=== PATIENT | male | born 1960 | race African-American/Black ===

== ENCOUNTER 2017-02-06 09:16 | Emergency (ER) | payer MEDICAID ==
[~2017-02-06] VITALS: Ht 188 cm; Wt 100.0 kg
[~2017-02-06 09:16] MED LIST: ALBU17I INH; CLEO300C2 PO; HYDR-3535 PO; MORP20SO PO
[2017-02-06 09:18] VITALS: BP 123/103; PULSE 98; RESP 24; TEMP 97.9; O2SAT 97
[2017-02-06] MEDS ORDERED: SODIUM CHLOR 0.9% 1000 ML INJ 1,000 ML IV SCH (09:27)
[2017-02-06] MEDS ORDERED: MUSCLE RELAXER PO (09:30)
[2017-02-06] MEDS ORDERED: HYDR-3535 PO (09:30)
[2017-02-06] MEDS ORDERED: ONDANSETRON HCL 4 MG/2 ML VIAL IVP ONE (09:30)
--- NOTE | 2017-02-06 09:36 | PD ---
HPI Chief Complaint: GI Complaint Time Seen by Provider: 09:22 Travel History International Travel<30 days: No Contact w/Intl Traveler<30days: No Traveled to known affect area: No History of Present Illness HPI 56-year-old male complains of nausea vomiting diarrhea. Patient has headache, body ache, chest wall pain, abdominal cramping, body ache. Patient states the symptoms started 2 days ago. Patient has sick contacts recently. Patient states that the headaches mild aching headache. Patient denies any visual change. Patient denies any neck pain. Patient states that he has mild dry cough. Patient complains of chest wall pain. Patient states that he has intermittent abdominal cramping. Patient denies any blood or mucus in the vomitus or the stool. Patient denies dysuria or frequency. Patient states he has fever and chills. PFSH Past Medical History Asthma: Yes Cardiovascular Problems: No COPD: Yes (EMPHYSEMA) Cerebrovascular Accident: No Diabetes: No Diminished Hearing: No Endocrine: No Genitourinary: No Musculoskeletal: No Neurologic: Yes Psychiatric: No Reproductive: No Respiratory: Yes (EMPHYSEMA) Migraines: Yes Seizures: No Sleep Apnea: No Tetanus Vaccination: > 5 Years Influenza Vaccination: No Past Surgical History Abdominal Surgery: No AICD: No Arteriovenous Shunt: No Cardiac Surgery: No Ear Surgery: No Endocrine Surgery: No Eye Surgery: No Genitourinary Surgery: No Gynecologic Surgery: No Insulin Pump: No Joint Replacement: No Oral Surgery: No Pacemaker: No Thoracic Surgery: Yes (COLLAPSE LUNG--CHEST TUBE) Other Surgery: Yes Social History Alcohol Use: Yes (RARELY) Tobacco Use: Yes (QUIT APRIL 2011) Substance Use: No Allergies-Medications (Allergen,Severity, Reaction): Coded Allergies: *MDRO Multi-Drug Resistant Organism (Verified Allergy, Unknown, 02/06/17) MRSA Reported Meds & Prescriptions Reported Meds & Active Scripts Active Reported [Muscle Relaxer] Unknown Dose PO Lortab (Hydrocodone-Acetaminophen) 10-325 Mg Tab 1 Tab PO Q6H PRN Review of Systems General / Constitutional: No: Fever Eyes: No: Visual changes HENT: Positive: Headaches Cardiovascular: No: Chest Pain or Discomfort Respiratory: Positive: Cough, No: Shortness of Breath Gastrointestinal: Positive: Nausea, Vomiting, Diarrhea, No: Abdominal Pain Genitourinary: No: Dysuria Musculoskeletal: No: Pain Skin: No Rash Neurologic: No: Weakness Psychiatric: No: Depression Endocrine: No: Polydipsia Hematologic/Lymphatic: No: Easy Bruising Physical Exam Narrative GENERAL: Well-nourished, well-developed patient. SKIN: Focused skin assessment warm/dry. HEAD: Normocephalic. EYES: No scleral icterus. No injection or drainage. NECK: Supple, trachea midline. No JVD or lymphadenopathy. CARDIOVASCULAR: Regular rate and rhythm without murmurs, gallops, or rubs. RESPIRATORY: Breath sounds equal bilaterally. No accessory muscle use. GASTROINTESTINAL: Abdomen soft, nondistended. Patient has mild tenderness diffusely over the abdomen. No rebound tenderness. No mass. MUSCULOSKELETAL: No cyanosis, or edema. BACK: Nontender without obvious deformity. No CVA tenderness. Neurologic exam normal. Data Data Last Documented VS Vital Signs Date Time Temp Pulse Resp B/P Pulse Ox O2 Delivery O2 Flow Rate FiO2 02/06/17 11:18 83 18 137/67 95 Room Air 02/06/17 09:18 97.9 Orders Complete Blood Count With Diff (02/06/17 09:27) Comprehensive Metabolic Panel (02/06/17 09:27) Lipase (02/06/17 09:27) Iv Access Insert/Monitor (02/06/17 09:27) Ecg Monitoring (02/06/17 09:27) Oximetry (02/06/17 09:27) Ondansetron Inj (Zofran Inj) (02/06/17 09:30) Sodium Chlor 0.9% 1000 Ml Inj (Ns 1000 M (02/06/17 09:27) Influenzae A/B Antigen (02/06/17 09:27) Chest, Single Ap (02/06/17 09:27) Ketorolac Inj (Toradol Inj) (02/06/17 09:45) Diphenoxylate/Atropine Tab (Lomotil Tab) (02/06/17 09:45) Labs Laboratory Tests Test 02/06/17 02/06/17 09:50 10:44 White Blood Count 4.9 TH/MM3 Red Blood Count 4.79 MIL/MM3 Hemoglobin 15.6 GM/DL Hematocrit 45.6 % Mean Corpuscular Volume 95.2 FL Mean Corpuscular Hemoglobin 32.5 PG Mean Corpuscular Hemoglobin 34.2 % Concent Red Cell Distribution Width 12.6 % Platelet Count 228 TH/MM3 Mean Platelet Volume 9.0 FL Neutrophils (%) (Auto) 84.7 % Lymphocytes (%) (Auto) 9.7 % Monocytes (%) (Auto) 4.8 % Eosinophils (%) (Auto) 0.6 % Basophils (%) (Auto) 0.2 % Neutrophils # (Auto) 4.2 TH/MM3 Lymphocytes # (Auto) 0.5 TH/MM3 Monocytes # (Auto) 0.2 TH/MM3 Eosinophils # (Auto) 0.0 TH/MM3 Basophils # (Auto) 0.0 TH/MM3 CBC Comment DIFF FINAL Differential Comment Sodium Level 141 MEQ/L Potassium Level 4.6 MEQ/L Chloride Level 110 MEQ/L Carbon Dioxide Level 22.7 MEQ/L Anion Gap 8 MEQ/L Blood Urea Nitrogen 14 MG/DL Creatinine 0.91 MG/DL Estimat Glomerular Filtration 105 ML/MIN Rate Random Glucose 93 MG/DL Calcium Level 8.0 MG/DL Total Bilirubin 0.6 MG/DL Aspartate Amino Transf 29 U/L (AST/SGOT) Alanine Aminotransferase 25 U/L (ALT/SGPT) Alkaline Phosphatase 33 U/L Total Protein 6.8 GM/DL Albumin 3.3 GM/DL Lipase 522 U/L MDM Medical Decision Making Medical Screen Exam Complete: Yes Emergency Medical Condition: Yes Interpretation(s) Last Impressions Chest X-Ray 02/06/17 0927 Signed Impressions: Service Date/Time: Monday, February 06, 2017 10:15 - CONCLUSION: No acute disease. Handy Woodall MD 10:55 AM. CBC within normal limit. Influenza AB antigen negative. 11:36 AM. CMP within normal limit. Lipase 522. Differential Diagnosis Differential diagnosis including viral syndrome, bronchitis, pneumonia, gastroenteritis, dehydration, electrolyte imbalance, gastritis, PUD, pancreatitis, cholecystitis, colitis, UTI, pyelonephritis. Narrative Course 56 years old male with headache, body ache, nausea vomiting diarrhea. Normal saline solution 1 L IV bolus. Zofran 4 mg IV. Diagnosis Primary Impression: Gastroenteritis Additional Impression: Viral syndrome Patient Instructions: General Instructions Additional Instructions: Clear fluids today and advance diet tomorrow. Take medication as needed. Follow-up with personal physician. Return if persistent problem or worse. Tylenol for aching pain. Med/Other Pt SpecificInfo: Prescription(s) given Scripts Dicyclomine (Bentyl)20 Mg Tab20 Mg PO TID #21 TAB Prov:Tommy Castaneda MD 02/06/17 Pantoprazole (Protonix)20 Mg Tab20 Mg PO DAILY #30 TAB Prov:Tommy Castaneda MD 02/06/17 Disposition: 01 DISCHARGE HOME Condition: Stable Tommy Castaneda MD Feb 06, 2017 09:36
[2017-02-06] MEDS ORDERED: DIPHENOXYLATE/ATROPINE 2.5 MG/0.025 MG TAB PO ONE (09:45)
[2017-02-06] MEDS ORDERED: KETOROLAC TROMETHAMINE 30 MG/ML (IVP) VIAL IV PUSH ONE (09:45)
[2017-02-06 10:12] LABS: AUTOMATED NEUTROPHIL # 4.2 TH/MM3 (1.8-7.7); BASOPHIL % 0.2 % (0.0-2.0); EOSINOPHIL % 0.6 % (0.0-4.0); HEMATOCRIT 45.6 % (39.0-51.0); HEMO FLAGS DIFF FINAL; LYMPH % 9.7 % (9.0-44.0); LYMPHOCYTE # 0.5 TH/MM3 (1.0-4.8); MEAN CELL VOLUME 95.2 FL (80.0-100.0); MEAN CORPUSCULAR HEMOGLOBIN 32.5 PG (27.0-34.0); MEAN CORPUSCULAR HGB CONC 34.2 % (32.0-36.0); MONO % 4.8 % (0.0-8.0); NEUT % 84.7 % (16.0-70.0); PLATELET COUNT 228 TH/MM3 (150-450); RED BLOOD COUNT 4.79 MIL/MM3 (4.50-5.90); RED CELL DISTRIBUTION WIDTH 12.6 % (11.6-17.2); WHITE BLOOD COUNT 4.9 TH/MM3 (4.0-11.0)
--- NOTE | 2017-02-06 10:29 | RADRPT ---
EXAM DATE/TIME: 02/06/2017 10:15 [facility] COMPARISON: CHEST SINGLE AP, March 30, 2013, 12:35. INDICATIONS : Cough. MEDICAL HISTORY : Chronic obstructive pulmonary disease. SURGICAL HISTORY : Lobectomy ENCOUNTER: Initial ACUITY: 1 month PAIN SCORE: 0/10 LOCATION: Bilateral chest FINDINGS: A single view of the chest demonstrates the lungs to be symmetrically aerated without evidence of mas s, infiltrate or effusion. The cardiomediastinal contours are unremarkable. Osseous structures are intact. CONCLUSION: No acute disease. Handy Woodall MD on February 06, 2017 at 10:25 Board Certified Radiologist. This report was verified electronically.
[2017-02-06 11:15] LABS: ANION GAP 8 MEQ/L (5-15); AST (GOT) 29 U/L (15-37); BICARBONATE 22.7 MEQ/L (21.0-32.0); BLOOD UREA NITROGEN 14 MG/DL (7-18); CHLORIDE 110 MEQ/L (98-107); GLOMERULAR FILTRATION RATE 105 ML/MIN (>89); SODIUM (NA) 141 MEQ/L (136-145)
[2017-02-06 11:18] VITALS: BP 137/67; PULSE 83; RESP 18; O2SAT 95
[2017-02-06 11:18] LABS: POTASSIUM 4.6 MEQ/L (3.5-5.1)
[2017-02-06 11:22] LABS: ALKALINE PHOSPHATASE 33 U/L (45-117); ALT (GPT) 25 U/L (12-78); TOTAL BILIRUBIN ADULT 0.6 MG/DL (0.2-1.0)
[2017-02-06] MEDS ORDERED: BENT20TA PO (11:40)
[2017-02-06] MEDS ORDERED: PANT20 PO (11:40)
== END 2017-02-06 12:15 | disposition home or self-care (01) ==
LOC: NEPD 09:16
DX: K52.9 Noninfective gastroenteritis and colitis, unspecified (principal); B34.9 Viral infection, unspecified
CPT/HCPCS: 71010; 80053; 83690; 85025; 87804; 96361; 96374; 96375; J1885; J2405; J7030

== ENCOUNTER 2017-02-07 17:55 | Inpatient (IN) | payer MEDICAID ==
[~2017-02-07] VITALS: Ht 182.9 cm; Wt 86.0 kg
[~2017-02-07 17:55] MED LIST changes: -ALBU17I INH; +BENT20TA PO; -CLEO300C2 PO; -MORP20SO PO; +MUSCLE RELAXER PO; +PANT20 PO
[2017-02-07 17:57] VITALS: BP 158/85; PULSE 138; RESP 28; TEMP 97.8; O2SAT 93
[2017-02-07] MEDS ORDERED: SODIUM CHLORIDE 0.9% FLUSH 10 ML FLUSH IVF PRN (18:15)
--- NOTE | 2017-02-07 18:20 | PD ---
HPI Chief Complaint: Respiratory Distress Time Seen by Provider: 18:19 Travel History International Travel<30 days: No Contact w/Intl Traveler<30days: No Traveled to known affect area: No History of Present Illness HPI Patient comes in complaining of left-sided chest pain that began 2 hours prior to arrival. Patient states pain began shortly after taking a dose of Bentyl. Patient's pain feels similar to a lung collapse previously. Patient denies anything making it better. Patient states initially started his blood pressure also his chest has since radiated down his low back. Patient reports associated shortness of breath. PFSH Past Medical History Asthma: Yes Cardiovascular Problems: No COPD: Yes Cerebrovascular Accident: No Diabetes: No Diminished Hearing: No Endocrine: No Genitourinary: No Musculoskeletal: No Neurologic: Yes Psychiatric: No Reproductive: No Respiratory: Yes Migraines: Yes Seizures: No Sleep Apnea: No Past Surgical History Abdominal Surgery: No AICD: No Arteriovenous Shunt: No Cardiac Surgery: No Ear Surgery: No Endocrine Surgery: No Eye Surgery: No Genitourinary Surgery: No Gynecologic Surgery: No Insulin Pump: No Joint Replacement: No Oral Surgery: No Pacemaker: No Thoracic Surgery: Yes (COLLAPSE LUNG--CHEST TUBE) Other Surgery: Yes Social History Alcohol Use: Yes Tobacco Use: No Substance Use: No Allergies-Medications (Allergen,Severity, Reaction): Coded Allergies: *MDRO Multi-Drug Resistant Organism (Verified Allergy, Unknown, 02/06/17) MRSA Reported Meds & Prescriptions Reported Meds & Active Scripts Active Bentyl (Dicyclomine HCl) 20 Mg Tab 20 Mg PO TID Protonix (Pantoprazole Sodium) 20 Mg Tab 20 Mg PO DAILY Reported [Muscle Relaxer] Unknown Dose PO Lortab (Hydrocodone-Acetaminophen) 10-325 Mg Tab 1 Tab PO Q6H PRN Review of Systems Except as stated in HPI: all other systems reviewed are Neg Physical Exam Narrative GENERAL: Well-developed, well nourished, in moderate distress, and non-ill appearing. SKIN: Focused skin assessment warm and dry. HEAD: Atraumatic. Normocephalic. EYES: Pupils equal and round. EOMI. No scleral icterus. No injection or drainage. ENT: No nasal bleeding or discharge. Mucous membranes pink and moist. NECK: Trachea appears slightly shifted to the right, but this may be positional. Supple. No nuclear rigidity. CARDIOVASCULAR: Tachycardia rate and regular rhythm. No murmur appreciated. RESPIRATORY: Accessory muscle use. Respiratory distress. Decreased breath sounds left. Breath sounds unequal bilaterally. MUSCULOSKELETAL: No obvious deformities. No clubbing. No cyanosis. No edema. Full range of motion. NEUROLOGICAL: Awake and alert. No obvious cranial nerve deficits. Motor grossly within normal limits. Normal speech. PSYCHIATRIC: Appropriate mood and affect; insight and judgment normal. Data Data Last Documented VS Vital Signs Date Time Temp Pulse Resp B/P Pulse Ox O2 Delivery O2 Flow Rate FiO2 02/07/17 18:45 96 Nasal Cannula 2 02/07/17 18:43 102 22 180/102 02/07/17 17:57 97.8 Orders Electrocardiogram (02/07/17 18:15) Basic Metabolic Panel (Bmp) (02/07/17 18:15) Ckmb (Isoenzyme) Profile (02/07/17 18:15) Complete Blood Count With Diff (02/07/17 18:15) Magnesium (Mg) (02/07/17 18:15) Prothrombin Time / Inr (Pt) (02/07/17 18:15) Act Partial Throm Time (Ptt) (02/07/17 18:15) Troponin I (02/07/17 18:15) Chest, Single Ap (02/07/17 18:15) Ecg Monitoring (02/07/17 18:15) Bilateral Bp Monitoring (02/07/17 18:15) Iv Access Insert/Monitor (02/07/17 18:15) Oximetry (02/07/17 18:15) Oxygen Administration (02/07/17 18:15) Sodium Chloride 0.9% Flush (Ns Flush) (02/07/17 18:15) Morphine Inj (Morphine Inj) (02/07/17 18:45) Sodium Chlorid 0.9% 500 Ml Inj (Ns 500 M (02/07/17 18:45) Ondansetron Inj (Zofran Inj) (02/07/17 18:45) Lidocai-Epi 1%-1:100,000 Inj (Xylocaine- (02/07/17 19:00) Lidocai-Epi 1%-1:100,000 Inj (Xylocaine- (02/07/17 18:57) CKMB (02/07/17 18:30) CKMB% (02/07/17 18:30) Chest, Single Ap (02/07/17 ) Morphine Inj (Morphine Inj) (02/07/17 20:15) Admit Order (Ed Use Only) (02/07/17 20:22) Labs Laboratory Tests Test 02/07/17 18:30 White Blood Count 6.1 TH/MM3 Red Blood Count 4.81 MIL/MM3 Hemoglobin 14.8 GM/DL Hematocrit 46.6 % Mean Corpuscular Volume 97.0 FL Mean Corpuscular Hemoglobin 30.8 PG Mean Corpuscular Hemoglobin 31.8 % Concent Red Cell Distribution Width 12.8 % Platelet Count 223 TH/MM3 Mean Platelet Volume 8.8 FL Neutrophils (%) (Auto) 71.0 % Lymphocytes (%) (Auto) 20.4 % Monocytes (%) (Auto) 8.1 % Eosinophils (%) (Auto) 0.1 % Basophils (%) (Auto) 0.4 % Neutrophils # (Auto) 4.3 TH/MM3 Lymphocytes # (Auto) 1.2 TH/MM3 Monocytes # (Auto) 0.5 TH/MM3 Eosinophils # (Auto) 0.0 TH/MM3 Basophils # (Auto) 0.0 TH/MM3 CBC Comment DIFF FINAL Differential Comment Prothrombin Time 11.5 SEC Prothromb Time International 1.0 RATIO Ratio Activated Partial 27.5 SEC Thromboplast Time Sodium Level 137 MEQ/L Potassium Level 3.6 MEQ/L Chloride Level 103 MEQ/L Carbon Dioxide Level 23.7 MEQ/L Anion Gap 10 MEQ/L Blood Urea Nitrogen 22 MG/DL Creatinine 1.36 MG/DL Estimat Glomerular Filtration 66 ML/MIN Rate Random Glucose 163 MG/DL Calcium Level 8.5 MG/DL Magnesium Level 2.0 MG/DL Total Creatine Kinase 220 U/L Creatine Kinase MB 1.4 NG/ML Troponin I LESS THAN 0.02 NG/ML MDM Medical Decision Making Medical Screen Exam Complete: Yes Emergency Medical Condition: Yes Differential Diagnosis Arrhythmia, acute coronary syndrome, electrolyte abnormality, pneumothorax, tension pneumothorax, other Narrative Course Patient was seen and examined. Discussed patient with Dr. Dotson, who saw and evaluated the patient, placed a chest tube status post x-ray, and is in agreement with plan of care and disposition. Discussed all findings and plan care of patient, who is agreeable for admission. All questions were answered. Physician Communication Physician Communication [address] Travis, who is agreeable to admit the patient. Diagnosis Primary Impression: Tension pneumothorax, spontaneous Admitting Information Admitting Physician Requests: Admit Condition: Stable Omero Farmer Feb 07, 2017 18:20
--- NOTE | 2017-02-07 18:30 | PD ---
Physical Exam Date Seen by Provider: Feb 07, 2017 Narrative Patient presents with acute dyspnea. Data Data Last Documented VS Vital Signs Date Time Temp Pulse Resp B/P Pulse Ox O2 Delivery O2 Flow Rate FiO2 02/07/17 18:06 25 95 Nasal Cannula 2 02/07/17 17:57 97.8 138 158/85 Orders Electrocardiogram (02/07/17 18:15) Basic Metabolic Panel (Bmp) (02/07/17 18:15) Ckmb (Isoenzyme) Profile (02/07/17 18:15) Complete Blood Count With Diff (02/07/17 18:15) Magnesium (Mg) (02/07/17 18:15) Prothrombin Time / Inr (Pt) (02/07/17 18:15) Act Partial Throm Time (Ptt) (02/07/17 18:15) Troponin I (02/07/17 18:15) Chest, Single Ap (02/07/17 18:15) Ecg Monitoring (02/07/17 18:15) Bilateral Bp Monitoring (02/07/17 18:15) Iv Access Insert/Monitor (02/07/17 18:15) Oximetry (02/07/17 18:15) Oxygen Administration (02/07/17 18:15) Sodium Chloride 0.9% Flush (Ns Flush) (02/07/17 18:15) MDM Supervised Visit with BETZAIDA: Yes Narrative Course I, Dr. Dotson, have reviewed the advance practice practitioner's documentation and am in agreement, met with the patient face to face, made the diagnosis, and the medical decision making was done by me. *My assessment and Findings: Patient is tachypneic and tachycardic and hasn't increased work of breathing. His lungs have diminished breath sounds. Gina Dotson MD Feb 07, 2017 18:30
[2017-02-07 18:43] VITALS: BP 180/102; PULSE 102; RESP 22; O2SAT 96
[2017-02-07 18:45] VITALS: O2SAT 96
[2017-02-07] MEDS ORDERED: ONDANSETRON HCL 4 MG/2 ML VIAL IV PUSH ONE (18:45)
[2017-02-07] MEDS ORDERED: SODIUM CHLORID 0.9% 500 ML INJ 500 ML IV ONE (18:45)
[2017-02-07] MEDS ORDERED: MORPHINE SULFATE 4 MG/ML INJ IV PUSH ONE ×3 (18:45→23:00)
[2017-02-07 18:55] LABS: AUTOMATED NEUTROPHIL # 4.3 TH/MM3 (1.8-7.7); BASOPHIL % 0.4 % (0.0-2.0); EOSINOPHIL % 0.1 % (0.0-4.0); HEMATOCRIT 46.6 % (39.0-51.0); HEMO FLAGS DIFF FINAL; LYMPH % 20.4 % (9.0-44.0); LYMPHOCYTE # 1.2 TH/MM3 (1.0-4.8); MEAN CORPUSCULAR HEMOGLOBIN 30.8 PG (27.0-34.0); MEAN CORPUSCULAR HGB CONC 31.8 % (32.0-36.0); MONO % 8.1 % (0.0-8.0); PLATELET COUNT 223 TH/MM3 (150-450); RED BLOOD COUNT 4.81 MIL/MM3 (4.50-5.90); RED CELL DISTRIBUTION WIDTH 12.8 % (11.6-17.2); WHITE BLOOD COUNT 6.1 TH/MM3 (4.0-11.0)
[2017-02-07] MEDS ORDERED: LIDOCAINE 1%/EPINEPHrine 1:100,000 SOLN 50 ML VIAL ONE (18:57)
[2017-02-07] MEDS ORDERED: LIDOCAINE 1%/EPINEPHrine 1:100,000 SOLN 20 ML VIAL INFIL ONE (19:00)
[2017-02-07 19:07] LABS: APTT (PATIENT) 27.5 SEC (24.3-30.1); PROTHROMBIN TIME - PATIENT 11.5 SEC (9.8-11.6)
--- NOTE | 2017-02-07 19:21 | RADRPT ---
EXAM DATE/TIME: 02/07/2017 18:43 [facility] COMPARISON: CHEST SINGLE AP, February 06, 2017, 10:15. INDICATIONS : Extreme shortness of breath and left side chest pain today. MEDICAL HISTORY : Chronic obstructive pulmonary disease. Smoker. SURGICAL HISTORY : Right lobectomy. ENCOUNTER: Initial ACUITY: 1 day PAIN SCORE: 8/10 LOCATION: Left chest FINDINGS: Large left pneumothorax noted again with mediastinal shift to the right. The pneumothorax is new. CONCLUSION: Large tension pneumothorax on the left. Report called to the ED Carlos Manuel Lindquist MD on February 07, 2017 at 19:17 Board Certified Radiologist. This report was verified electronically.
[2017-02-07 19:24] LABS: ANION GAP 10 MEQ/L (5-15); BICARBONATE 23.7 MEQ/L (21.0-32.0); BLOOD UREA NITROGEN 22 MG/DL (7-18); CHLORIDE 103 MEQ/L (98-107); CREATINE KINASE 220 U/L (39-308); GLOMERULAR FILTRATION RATE 66 ML/MIN (>89); POTASSIUM 3.6 MEQ/L (3.5-5.1); SODIUM (NA) 137 MEQ/L (136-145)
[2017-02-07 19:41] LABS: CKMB 1.4 NG/ML (0.5-3.6)
--- NOTE | 2017-02-07 20:26 | RADRPT ---
EXAM DATE/TIME: 02/07/2017 19:44 [facility] COMPARISON: No previous studies available for comparison. INDICATIONS : Chest tube placement. MEDICAL HISTORY : Chronic obstructive pulmonary disease. Smoker. SURGICAL HISTORY : Right lobectomy. ENCOUNTER: Subsequent ACUITY: 1 day PAIN SCORE: 10/10 LOCATION: Left chest FINDINGS: Large caliber chest tube now present on the left. Left lung is reexpanded. No perceptible residual pn eumothorax. Chest wall emphysema is noted. Tension has resolved. Trace atelectasis on the right. CONCLUSION: Reexpanded left lung after chest tube placement. Carlos Manuel Lindquist MD on February 07, 2017 at 20:23 Board Certified Radiologist. This report was verified electronically.
[2017-02-07] MEDS ORDERED: NALOXONE HCL 0.4 MG/ML AMP IV PRN (20:45)
[2017-02-07] MEDS ORDERED: SODIUM CHLORIDE 0.9% FLUSH 10 ML FLUSH IV FLUSH PRN (20:45)
[2017-02-07] MEDS: SODIUM CHLORIDE 0.9% FLUSH 10 ML FLUSH IV FLUSH SCH (21:21)
[2017-02-07] MEDS ORDERED: ACETAMINOPHEN/HYDROcodone 325 MG/5 MG TAB PO PRN (23:00)
[2017-02-08] VITALS: BP 130/70; PULSE 90; RESP 17; TEMP 99.8; O2SAT 93
[2017-02-08] MEDS: ONDANSETRON HCL 4 MG/2 ML VIAL IV PUSH PRN (02:14)
[2017-02-08] MEDS: ACETAMINOPHEN/HYDROcodone 325 MG/7.5 MG TAB PO PRN ×5 (02:14→22:55)
[2017-02-08 04:30] VITALS: BP 115/59; PULSE 82; RESP 18; TEMP 97.9; O2SAT 95
[2017-02-08 05:13] LABS: AUTOMATED NEUTROPHIL # 3.7 TH/MM3 (1.8-7.7); BASOPHIL % 0.2 % (0.0-2.0); HEMATOCRIT 40.8 % (39.0-51.0); HEMO FLAGS DIFF FINAL; LYMPH % 23.6 % (9.0-44.0); LYMPHOCYTE # 1.3 TH/MM3 (1.0-4.8); MEAN CELL VOLUME 94.9 FL (80.0-100.0); MEAN CORPUSCULAR HEMOGLOBIN 31.1 PG (27.0-34.0); MEAN CORPUSCULAR HGB CONC 32.7 % (32.0-36.0); MONO % 10.3 % (0.0-8.0); NEUT % 65.9 % (16.0-70.0); PLATELET COUNT 184 TH/MM3 (150-450); RED CELL DISTRIBUTION WIDTH 12.2 % (11.6-17.2); WHITE BLOOD COUNT 5.7 TH/MM3 (4.0-11.0)
[2017-02-08 05:35] LABS: BICARBONATE 27.8 MEQ/L (21.0-32.0); POTASSIUM 3.8 MEQ/L (3.5-5.1)
[2017-02-08 08:00] VITALS: BP 128/79; PULSE 86; RESP 17; TEMP 98.3; O2SAT 91
[2017-02-08] MEDS: SODIUM CHLORIDE 0.9% FLUSH 10 ML FLUSH IV FLUSH SCH ×2 (08:14→22:55)
--- NOTE | 2017-02-08 09:51 | HHI.HP ---
[facility] Chioma Parnell MD Admission Diagnosis spontaneous tension pneumothorax Diagnoses: Chief Complaint: Shortness of breath Travel History International Travel<30 Days: No Contact w/Intl Traveler <30 Da: No Traveled to Known Affected Are: No History of Present Illness 56-year-old male with a medical history significant for COPD with bullous emphysema and history of recurrent spontaneous pneumothorax presented to the emergency room with complaint of sudden onset shortness of breath. The patient reports he has been having vomiting and diarrhea for the past 3 days. He suddenly got short of breath yesterday after a vomiting episode. He presented to the emergency room and was found to have a tension pneumothorax. Of note this is a third episode of spontaneous pneumothorax for this patient. Last time was about 4 years ago on the right side at which point he underwent a right upper segmentectomy and wedge resection. He reports that he quit smoking 4 years ago. However his girlfriend continues to smoke around him. Since the chest tube has been placed, the left lung has since reexpanded. He is currently breathing comfortably on room air. He denies chest pressure. No longer having vomiting and diarrhea. Review of Systems Constitutional: DENIES: Fever, Chills Endocrine: DENIES: Polyuria, Polyphagia Respiratory: COMPLAINS OF: Shortness of breath Gastrointestinal: COMPLAINS OF: Diarrhea, Nausea, Vomiting Except as stated in HPI: all other systems reviewed are Neg Past Family Social History Past Medical History COPD with bullous emphysema History of tobacco abuse Past Surgical History Right upper lobe segmentectomy, wedge resection Right hand surgery Reported Medications Reported Meds & Active Scripts Active Bentyl (Dicyclomine HCl) 20 Mg Tab 20 Mg PO TID Protonix (Pantoprazole Sodium) 20 Mg Tab 20 Mg PO DAILY Reported [Muscle Relaxer] Unknown Dose PO Lortab (Hydrocodone-Acetaminophen) 10-325 Mg Tab 1 Tab PO Q6H PRN Allergies: Coded Allergies: *MDRO Multi-Drug Resistant Organism (Verified Allergy, Unknown, 02/06/17) MRSA Family History Younger brother and older sister of complications from diabetes Social History Patient reports that he quit smoking about 4 years ago. However multiple members of his family constantly smoke around him. He admits to occasional alcohol. Denies illicit drug use. Physical Exam Vital Signs Vital Signs Date Time Temp Pulse Resp B/P Pulse Ox O2 Delivery O2 Flow Rate FiO2 02/08/17 08:00 98.3 86 17 128/79 91 02/08/17 04:30 97.9 82 18 115/59 95 02/08/17 00:00 99.8 90 17 130/70 93 02/07/17 18:45 96 Nasal Cannula 2 02/07/17 18:43 96 Nasal Cannula 2 02/07/17 18:43 102 22 180/102 96 Room Air 2 02/07/17 18:06 25 95 Nasal Cannula 2 02/07/17 17:57 97.8 138 28 158/85 93 Room Air Physical Exam GENERAL: Well-built male in no acute distress. SKIN: No rashes, ecchymoses or lesions. Cool and dry. Left-sided chest tube in place. HEAD: Atraumatic. Normocephalic. No temporal or scalp tenderness. EYES: Pupils equal round and reactive. Extraocular motions intact. No scleral icterus. No injection or drainage. ENT: Nose without bleeding, purulent drainage or septal hematoma. Throat without erythema, tonsillar hypertrophy or exudate. Uvula midline. Airway patent. NECK: Trachea midline. No JVD or lymphadenopathy. Supple, nontender, no meningeal signs. CARDIOVASCULAR: Regular rate and rhythm without murmurs, gallops, or rubs. RESPIRATORY: Diminished air movement bilaterally. There is a chest tube in place on the left side. No air leak detected. GASTROINTESTINAL: Abdomen soft, non-tender, nondistended. No hepato-splenomegaly , or palpable masses. No guarding. MUSCULOSKELETAL: Extremities without clubbing, cyanosis, or edema. No joint tenderness, effusion, or edema noted. No calf tenderness. Negative Homans sign bilaterally. NEUROLOGICAL: Awake and alert. Cranial nerves II through XII intact. Motor and sensory grossly within normal limits. Five out of 5 muscle strength in all muscle groups. Normal speech. Laboratory Laboratory Tests Test 02/07/17 02/08/17 18:30 04:35 White Blood Count 6.1 5.7 Red Blood Count 4.81 4.30 Hemoglobin 14.8 13.3 Hematocrit 46.6 40.8 Mean Corpuscular Volume 97.0 94.9 Mean Corpuscular Hemoglobin 30.8 31.1 Mean Corpuscular Hemoglobin 31.8 32.7 Concent Red Cell Distribution Width 12.8 12.2 Platelet Count 223 184 Mean Platelet Volume 8.8 9.0 Neutrophils (%) (Auto) 71.0 65.9 Lymphocytes (%) (Auto) 20.4 23.6 Monocytes (%) (Auto) 8.1 10.3 Eosinophils (%) (Auto) 0.1 0.0 Basophils (%) (Auto) 0.4 0.2 Neutrophils # (Auto) 4.3 3.7 Lymphocytes # (Auto) 1.2 1.3 Monocytes # (Auto) 0.5 0.6 Eosinophils # (Auto) 0.0 0.0 Basophils # (Auto) 0.0 0.0 CBC Comment DIFF FINAL DIFF FINAL Differential Comment Prothrombin Time 11.5 Prothromb Time International 1.0 Ratio Activated Partial 27.5 Thromboplast Time Sodium Level 137 138 Potassium Level 3.6 3.8 Chloride Level 103 103 Carbon Dioxide Level 23.7 27.8 Anion Gap 10 7 Blood Urea Nitrogen 22 18 Creatinine 1.36 1.02 Estimat Glomerular Filtration 66 92 Rate Random Glucose 163 94 Calcium Level 8.5 8.1 Magnesium Level 2.0 Total Creatine Kinase 220 Creatine Kinase MB 1.4 Troponin I LESS THAN 0.02 Result Diagram: 02/08/175 02/08/17 043 Imaging Last Impressions Chest X-Ray 02/07/171814 Signed Impressions: Service Date/Time: Tuesday, February 07, 2017 18:43 - CONCLUSION: Large tension pneumothorax on the left. Report called to the ED Carlos Manuel Lindquist MD Assessment and Plan Problem List: (1) Tension pneumothorax, spontaneous ICD Code: J93.0 Status: Acute (2) COPD with emphysema ICD Code: J43.9 Status: Acute (3) Tobacco smoke exposure ICD Code: Z77.22 Status: Acute Assessment and Plan 56-year-old male with COPD with bullous emphysema admitted with recurrence of spontaneous tension pneumothorax. Left Spontaneous tension pneumothorax: This is the third recurrence for the patient. He has a history of right upper lobe segmentectomy and wedge resection. - Patient is status post chest tube placement. Left lung have since reexpanded. 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 However he continues to have tobacco exposure from multiple family members. I discussed with him the need to avoid tobacco exposure. DVT PPx: SCDs Physician Certification 2 Midnight Certification Type: Admission for Inpatient Services Order for Inpatient Services The services are ordered in accordance with Medicare regulations or non- Medicare payer requirements, as applicable. In the case of services not specified as inpatient-only, they are appropriately provided as inpatient services in accordance with the 2-midnight benchmark. Estimated LOS (days): 3 days is the estimated time the patient will need to remain in the hospital, assuming treatment plan goals are met and no additional complications. Post-Hospital Plan: Home Izabella Hernandez MD Feb 08, 2017 09:51
[2017-02-08] MEDS: PANTOPRAZOLE SOD 20 MG DELAYED RELEASE TAB PO SCH (11:50)
[2017-02-08 12:00] VITALS: BP 144/92; PULSE 85; RESP 17; TEMP 98.6; O2SAT 91
--- NOTE | 2017-02-08 16:36 | RADRPT ---
EXAM DATE/TIME: 02/08/2017 16:22 [facility] COMPARISON: Prior study 02/07/2017 INDICATIONS : Pneumothorax MEDICAL HISTORY : Chronic obstructive pulmonary disease. SURGICAL HISTORY : Right lobectomy. Left chest tube ENCOUNTER: Subsequent ACUITY: 2 days PAIN SCORE: 8/10 LOCATION: Chest FINDINGS: Single view of the chest demonstrates left-sided chest tube in good position. Heart and mediastinum are unremarkable. Right lung is clear. CONCLUSION: Chest tube in good position. Tip overlies the apex. Cam Bowen MD on February 08, 2017 at 16:34 Board Certified Radiologist. This report was verified electronically.
[2017-02-08 20:00] VITALS: BP 118/71; PULSE 84; RESP 18; TEMP 99.2; O2SAT 93
[2017-02-08 22:00] VITALS: PULSE 80
[2017-02-09] VITALS (7 sets, daily range): BP systolic 119–150; BP diastolic 78–93; PULSE 78–145; RESP 17–20; TEMP 95.8–100.8; O2SAT 91–95
[2017-02-09] MEDS: ACETAMINOPHEN/HYDROcodone 325 MG/7.5 MG TAB PO PRN ×4 (03:33→19:43)
--- NOTE | 2017-02-09 06:14 | MB ---
cc: IQRA ESCALONA M.D. DATE OF CONSULTATION 02/08/2017 REASON FOR CONSULTATION Tension pneumothorax. HISTORY OF PRESENT ILLNESS Mr. Garcia is a 56-year-old -[place] male with known history of bilateral pneumothoraces for which he had been treated in the past. He did have embolectomy on the right in the past and I am not sure if he had a left bullectomy as well or not. He had diarrhea and vomiting for three days, after the vomiting episode had developed increasing shortness of breath and comes to the emergency room with chest x-ray evidence of a pneumothorax. His chest tube is in place with a large leak. He as well has developing subcu emphysema. The patient, however, is in no acute distress at present. His diarrhea seems to be improving as well. PAST MEDICAL HISTORY 1. The pneumothorax as mentioned above. 2. COPD. 3. History of tobacco abuse, has stopped smoking for several years now. CURRENT MEDICATIONS 1. Bentyl. 2. Protonix. ALLERGIES None known to medication. FAMILY HISTORY Positive for diabetes, otherwise unremarkable. SOCIAL HISTORY He used to smoke until about four years ago. Drinks alcohol occasionally. Does not use drugs. SYSTEMS REVIEW A 12-point review of systems as per HPI and Past History, otherwise negative. PHYSICAL EXAMINATION VITAL SIGNS: Temperature 98.2, pulse 80, respirations 18, blood pressure 130/80. HEENT: Exam unremarkable. Eyes without icterus. NECK: Without adenopathy or thyroid enlargement. Central trachea. CHEST: Subcu air to palpation upper anterior chest. LUNGS: Generally distant breath sounds, otherwise unremarkable. CARDIAC EXAM: PMI in fifth left space midclavicular line. S1-S2 audible. No murmur or rub. ABDOMEN: Lax. Bowel sounds audible. EXTREMITIES: No clubbing, cyanosis or edema. LABORATORY DATA White count 5.7, hemoglobin 13, hematocrit 40, platelets at 184,000. Sodium 138, potassium 3.8, BUN 18, creatinine 1.2. CHEST X-RAY Chest tube in place at the left lung apex. IMPRESSION 1. Pneumothorax post chest tube placement. 2. COPD. PLAN 1. The patient to continue chest tube drainage. 2. In view of the large leak and the subcu air, will ask Thoracic Surgery to see the patient as well should surgical intervention become necessary. 3. Bronchodilator therapy will be maintained. I do thank you for asking me to partake in Mr. Garcia's care. Sincerely Iqra Escalona MD WWW/FRANCISCO /8:16 PM /6:03 AM
--- NOTE | 2017-02-09 07:03 | EKG ---
Date Performed: 02/07/2017 Time Performed: 21:34:49 PTAGE: 56 years EKG: SINUS TACHYCARDIA NONSPECIFIC T-WAVE ABNORMALITY ABNORMAL RHYTHM ECG Compared to PREVIOUS TRACING , the sinus rate has increased. PREVIOUS TRACIN03/26/2013 04.30 DOCTOR: Jarred Marques Interpretating Date/Time 02/09/2017 07:02:15
[2017-02-09] MEDS: SODIUM CHLORIDE 0.9% FLUSH 10 ML FLUSH IV FLUSH SCH ×2 (08:10→19:39)
[2017-02-09] MEDS: PANTOPRAZOLE SOD 20 MG DELAYED RELEASE TAB PO SCH (08:10)
--- NOTE | 2017-02-09 13:57 | HHI.PR ---
Subjective Remarks Patient seen in follow-up for recurrent spontaneous pneumothorax Patient reports that he is doing ok today, upset at the possibility of needing surgery. Pulmonology consulted CT surgery to consider lung resection. Stable on room air. No increased in SOB. Objective Vitals Vital Signs Date Time Temp Pulse Resp B/P Pulse Ox O2 Delivery O2 Flow Rate FiO2 02/09/17 12:00 98.0 106 17 121/78 91 02/09/17 08:00 95.8 145 17 150/85 95 02/09/17 04:00 100.8 88 18 119/82 93 02/09/17 00:00 98.6 97 18 131/80 93 02/08/17 22:00 80 02/08/17 20:00 99.2 84 18 118/71 93 I/O 02/08/17 02/08/17 02/08/17 02/09/17 02/09/17 02/09/17 07:00 15:00 23:00 07:00 15:00 23:00 Intake Total 280 ml 120 ml 120 ml 480 ml Output Total 620 ml 30 ml 220 ml 680 ml Balance -340 ml 90 ml -100 ml -200 ml Intake Oral 280 ml 120 ml 120 ml 480 ml IV Total 0 ml 0 ml Output Urine Total 600 ml 200 ml 650 ml Chest Tube Drainage Total 20 ml 30 ml 20 ml 30 ml # Voids 4 # Bowel Movements 1 1 1 0 Result Diagram: 02/08/17 0435 02/08/17 0435 Imaging Last Impressions Chest X-Ray 02/08/17 0000 Signed Impressions: Service Date/Time: January 16:22 - CONCLUSION: Chest tube in good position. Tip overlies the apex. Cam Bowen MD Objective Remarks GENERAL: Well-built male in no acute distress. SKIN: Left-sided chest tube in place. NECK: Trachea midline. No JVD or lymphadenopathy. CARDIOVASCULAR: Regular rate and rhythm without murmurs, gallops, or rubs. RESPIRATORY: Diminished air movement bilaterally. There is a chest tube in place on the left side. He does have an air leak with subcutaneous air. GASTROINTESTINAL: Abdomen soft, non-tender, nondistended. No guarding. MUSCULOSKELETAL: Extremities without clubbing, cyanosis, or edema. NEUROLOGICAL: Awake and alert. Normal speech. A/P Problem List: (1) Tension pneumothorax, spontaneous ICD Code: J93.0 Status: Acute (2) COPD with emphysema ICD Code: J43.9 Status: Acute (3) Tobacco smoke exposure ICD Code: Z77.22 Status: Acute Assessment and Plan 56-year-old male with COPD with bullous emphysema admitted with recurrence of spontaneous tension pneumothorax. Left Spontaneous tension pneumothorax: This hospitalization is the third recurrence for the patient. He has a history of right upper lobe segmentectomy and wedge resection. - Patient is status post chest tube placement. Left lung have since reexpanded. 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 CT surgery has been consulted regarding opinion about surgical intervention. - Supplemental oxygen as needed - Pain control COPD with bullous emphysema: - Patient reports he quit smoking 4 years ago. However he continues to have tobacco exposure from multiple family members. I discussed with him the need to avoid tobacco exposure. DVT PPx: Izabella Buchanan MD Feb 09, 2017 13:57
--- NOTE | 2017-02-09 14:13 | HHI.PR ---
Subjective Remarks ALERT UP IN CHAIR CT IN PLACE NO SOB Objective Vital Signs Date Time Temp Pulse Resp B/P Pulse Ox O2 Delivery O2 Flow Rate FiO2 02/09/17 12:00 98.0 106 17 121/78 91 02/09/17 08:00 95.8 145 17 150/85 95 02/09/17 04:00 100.8 88 18 119/82 93 02/09/17 00:00 98.6 97 18 131/80 93 02/08/17 22:00 80 02/08/17 20:00 99.2 84 18 118/71 93 I/O 02/08/17 02/08/17 02/08/17 02/09/17 02/09/17 02/09/17 07:00 15:00 23:00 07:00 15:00 23:00 Intake Total 280 ml 120 ml 120 ml 480 ml Output Total 620 ml 30 ml 220 ml 680 ml Balance -340 ml 90 ml -100 ml -200 ml Intake Oral 280 ml 120 ml 120 ml 480 ml IV Total 0 ml 0 ml Output Urine Total 600 ml 200 ml 650 ml Chest Tube Drainage Total 20 ml 30 ml 20 ml 30 ml # Voids 4 # Bowel Movements 1 1 1 0 Result Diagram: 02/08/17 0435 02/08/17 0435 Objective Remarks GENERAL: SKIN: Warm and dry. HEAD: Atraumatic. Normocephalic. EYES: Pupils equal and round. No scleral icterus. No injection or drainage. ENT: No nasal bleeding or discharge. Mucous membranes pink and moist. NECK: Trachea midline. No JVD. CARDIOVASCULAR: Regular rate and rhythm. RESPIRATORY: No accessory muscle use. Clear to auscultation. Breath sounds equal bilaterally. GASTROINTESTINAL: Abdomen soft, non-tender, nondistended. Hepatic and splenic margins not palpable. MUSCULOSKELETAL: Extremities without clubbing, cyanosis, or edema. No obvious deformities. NEUROLOGICAL: Awake and alert. No obvious cranial nerve deficits. Motor grossly within normal limits. Five out of 5 muscle strength in the arms and legs. Normal speech. PSYCHIATRIC: Appropriate mood and affect; insight and judgment normal. Assessment and Plan Assessment and Plan ASSESSMENT SPONTANEOUS PNX COPD CT LESS LEAK PLAN MONITOR CT BRONCHODILATOR THERAPY Iqra Escalona MD Feb 09, 2017 14:13
--- NOTE | 2017-02-09 21:01 | RADRPT ---
EXAM DATE/TIME: 02/09/2017 18:44 [facility] COMPARISON: CT THORAX W/O CONTRAST, March 24, 2013, 20:50. CHEST SINGLE AP, February 07, 2017, 18:43. CHEST SINGLE A P, February 06, 2017, 10:15. CHEST SINGLE AP, February 07, 2017, 19:44. CHEST SINGLE AP, February 08, 2017, 16:22. INDICATIONS : Follow up pneumonthorax; post chest tube. RADIATION DOSE: 5.1 CTDIvol (mGy) MEDICAL HISTORY : Chronic obstructive pulmonary disease. prior spontaneous pneumthorax SURGICAL HISTORY : thoracotomy ENCOUNTER: Subsequent ACUITY: 2 days PAIN SCALE: 0/10 LOCATION: chest TECHNIQUE: Volumetric scanning of the chest was performed. Using automated exposure control and adjustment of t he mA and/or kV according to patient size, radiation dose was kept as low as reasonably achievable to obtain optimal diagnostic quality images. FINDINGS: A left thoracostomy tube is present good position with tip at the lung apex. There is a small persist ent anterior pneumothorax, mainly at the lung base during supine scanning. Multiple subpleural blebs are present involving the left lung. There is minimal probable scarring at the lateral left lung base . Contralateral right lung is notable for severe emphysematous changes well with areas of scarring in the posterior right upper lobe and in the right middle lobe. There is no evidence of mediastinal mass or lymphadenopathy. Coronary calcifications are present. There is no evidence of axillary adenopathy. Fairly extensive subcutaneous emphysema in the left late ral chest wall. There are probable cysts noted in the kidneys. The adrenal glands appear benign. CONCLUSION: Small persistent anterior pneumothorax on the left. Carlos Manuel Bush MD on February 09, 2017 at 20:53 Board Certified Radiologist. This report was verified electronically.
[2017-02-10] VITALS (7 sets, daily range): BP systolic 129–161; BP diastolic 60–82; PULSE 64–94; RESP 16–20; TEMP 97.4–98.9; O2SAT 94–100
[2017-02-10] MEDS: ACETAMINOPHEN/HYDROcodone 325 MG/7.5 MG TAB PO PRN ×4 (02:31→19:40)
[2017-02-10 05:58] LABS: HEMATOCRIT 40.9 % (39.0-51.0); MEAN CELL VOLUME 93.6 FL (80.0-100.0); MEAN CORPUSCULAR HEMOGLOBIN 31.7 PG (27.0-34.0); MEAN CORPUSCULAR HGB CONC 33.9 % (32.0-36.0); PLATELET COUNT 205 TH/MM3 (150-450); RED BLOOD COUNT 4.37 MIL/MM3 (4.50-5.90); RED CELL DISTRIBUTION WIDTH 12.4 % (11.6-17.2); REVIEW FLAG FINAL; WHITE BLOOD COUNT 3.7 TH/MM3 (4.0-11.0)
[2017-02-10 06:34] LABS: BICARBONATE 26.8 MEQ/L (21.0-32.0); POTASSIUM 3.4 MEQ/L (3.5-5.1)
[2017-02-10] MEDS: PANTOPRAZOLE SOD 20 MG DELAYED RELEASE TAB PO SCH (08:35)
[2017-02-10] MEDS: SODIUM CHLORIDE 0.9% FLUSH 10 ML FLUSH IV FLUSH SCH ×2 (08:37→19:40)
--- NOTE | 2017-02-10 12:10 | HHI.PR ---
Subjective Remarks ALERT UP IN CHAIR CT IN PLACE NO SOB Objective Vital Signs Date Time Temp Pulse Resp B/P Pulse Ox O2 Delivery O2 Flow Rate FiO2 02/10/17 08:00 97.4 64 16 129/62 98 02/10/17 04:00 98.4 85 20 138/82 94 02/10/17 00:00 98.2 78 20 133/82 94 02/09/17 20:00 97.9 96 20 133/93 95 02/09/17 19:30 88 02/09/17 16:00 97.7 78 17 126/78 93 I/O 02/09/17 02/09/17 02/09/17 02/10/17 02/10/17 02/10/17 07:00 15:00 23:00 07:00 15:00 23:00 Intake Total 480 ml 240 ml 720 ml 240 ml Output Total 680 ml 50 ml 300 ml 0 ml Balance -200 ml 190 ml 420 ml 240 ml Intake Oral 480 ml 240 ml 720 ml 240 ml IV Total 0 ml 0 ml 0 ml Output Urine Total 650 ml 300 ml Chest Tube Drainage Total 30 ml 50 ml 0 ml 0 ml # Voids 3 2 # Bowel Movements 0 1 Result Diagram: 02/10/17 0417 02/10/17 0417 Objective Remarks GENERAL: SKIN: Warm and dry. HEAD: Atraumatic. Normocephalic. EYES: Pupils equal and round. No scleral icterus. No injection or drainage. ENT: No nasal bleeding or discharge. Mucous membranes pink and moist. NECK: Trachea midline. No JVD. CARDIOVASCULAR: Regular rate and rhythm. RESPIRATORY: No accessory muscle use. Clear to auscultation. Breath sounds equal bilaterally. GASTROINTESTINAL: Abdomen soft, non-tender, nondistended. Hepatic and splenic margins not palpable. MUSCULOSKELETAL: Extremities without clubbing, cyanosis, or edema. No obvious deformities. NEUROLOGICAL: Awake and alert. No obvious cranial nerve deficits. Motor grossly within normal limits. Five out of 5 muscle strength in the arms and legs. Normal speech. PSYCHIATRIC: Appropriate mood and affect; insight and judgment normal. Assessment and Plan Assessment and Plan ASSESSMENT SPONTANEOUS PNX COPD CT LESS LEAK CT scan reviewed PLAN MONITOR CT BRONCHODILATOR THERAPY Iqra Escalona MD Feb 10, 2017 12:09
--- NOTE | 2017-02-10 12:24 | HHI.PR ---
Subjective Remarks Follow-up left spontaneous tension pneumothorax 02/10/17-patient seen and examined, denies any shortness of breath or left- sided chest pain. Patient states, he would not agree on any surgical intervention Objective Vitals Vital Signs Date Time Temp Pulse Resp B/P Pulse Ox O2 Delivery O2 Flow Rate FiO2 02/10/17 08:00 97.4 64 16 129/62 98 02/10/17 04:00 98.4 85 20 138/82 94 02/10/17 00:00 98.2 78 20 133/82 94 02/09/17 20:00 97.9 96 20 133/93 95 02/09/17 19:30 88 02/09/17 16:00 97.7 78 17 126/78 93 I/O 02/09/17 02/09/17 02/09/17 02/10/17 02/10/17 02/10/17 07:00 15:00 23:00 07:00 15:00 23:00 Intake Total 480 ml 240 ml 720 ml 240 ml Output Total 680 ml 50 ml 300 ml 0 ml Balance -200 ml 190 ml 420 ml 240 ml Intake Oral 480 ml 240 ml 720 ml 240 ml IV Total 0 ml 0 ml 0 ml Output Urine Total 650 ml 300 ml Chest Tube Drainage Total 30 ml 50 ml 0 ml 0 ml # Voids 3 2 # Bowel Movements 0 1 Result Diagram: 02/10/17 0417 02/10/17 0417 Imaging Last Impressions Chest CT 02/09/17 0000 Signed Impressions: Service Date/Time: Thursday, February 09, 2017 18:44 - CONCLUSION: Small persistent anterior pneumothorax on the left. Carlos Manuel Bush MD Chest X-Ray 02/08/17 0000 Signed Impressions: Service Date/Time: January 16:22 - CONCLUSION: Chest tube in good position. Tip overlies the apex. Cam Bowen MD Objective Remarks GENERAL: NAD SKIN: Warm and dry. HEAD: Normocephalic. EYES: No scleral icterus. No injection or drainage. NECK: Supple, trachea midline. No JVD or lymphadenopathy. CARDIOVASCULAR: Regular rate and rhythm without murmurs, gallops, or rubs. Chest tube in place left-sided RESPIRATORY: Breath sounds decrease bilaterally L>R. No accessory muscle use. GASTROINTESTINAL: Abdomen soft, non-tender, nondistended. MUSCULOSKELETAL: No cyanosis, or edema. BACK: Nontender without obvious deformity. No CVA tenderness. A/P Problem List: (1) Tension pneumothorax, spontaneous ICD Code: J93.0 Status: Acute (2) COPD with emphysema ICD Code: J43.9 Status: Acute (3) Tobacco smoke exposure ICD Code: Z77.22 Status: Acute Assessment and Plan 56-year-old man with Left Spontaneous tension pneumothorax: -Chest CT 02/09/17 finding of persistent left anterior pneumothorax -Continue with chest tube and appreciate input from pulmonary medicine. DuoNeb when necessary - Cardiothoracic surgery consultation pending - Supplemental oxygen as needed - Pain control COPD with bullous emphysema: - Advised on tobacco cessation; continue DuoNeb when necessary DVT PPx: David Wooten MD Feb 10, 2017 12:24
[2017-02-11] VITALS (7 sets, daily range): BP systolic 134–154; BP diastolic 72–89; PULSE 78–93; RESP 20; TEMP 96.5–98.8; O2SAT 93–97
[2017-02-11] MEDS: ACETAMINOPHEN/HYDROcodone 325 MG/7.5 MG TAB PO PRN ×6 (00:06→22:53)
[2017-02-11] MEDS: SODIUM CHLORIDE 0.9% FLUSH 10 ML FLUSH IV FLUSH SCH ×2 (07:42→22:53)
[2017-02-11] MEDS: PANTOPRAZOLE SOD 20 MG DELAYED RELEASE TAB PO SCH (07:42)
--- NOTE | 2017-02-11 11:39 | HHI.PR ---
Subjective Remarks Follow-up left spontaneous tension pneumothorax 02/10/17-patient seen and examined, denies any shortness of breath or left- sided chest pain. Patient states, he would not agree on any surgical intervention 02/11/17-patient seen and examined, although he denies shortness of breath or chest pain patient appears tired. Objective Vitals Vital Signs Date Time Temp Pulse Resp B/P Pulse Ox O2 Delivery O2 Flow Rate FiO2 02/11/17 08:00 98.3 80 20 134/74 95 02/11/17 04:00 96.5 80 20 139/83 94 02/11/17 00:00 98.8 79 20 154/72 93 02/10/17 20:11 94 02/10/17 20:00 98.9 89 20 156/82 95 02/10/17 16:00 98.3 70 17 161/60 100 02/10/17 12:00 98.2 89 17 152/79 100 I/O 02/10/17 02/10/17 02/10/17 02/11/17 02/11/17 02/11/17 07:00 15:00 23:00 07:00 15:00 23:00 Intake Total 240 ml 340 ml 720 ml 0 ml Output Total 0 ml 100 ml 0 ml 0 ml Balance 240 ml 240 ml 720 ml 0 ml Intake Oral 240 ml 340 ml 720 ml 0 ml IV Total 0 ml Chest Tube Drainage Total 0 ml 100 ml 0 ml 0 ml # Voids 2 3 3 2 # Bowel Movements 1 1 Result Diagram: 02/10/17 0417 02/10/17 0417 Imaging Last Impressions Chest CT 02/09/17 0000 Signed Impressions: Service Date/Time: Thursday, February 09, 2017 18:44 - CONCLUSION: Small persistent anterior pneumothorax on the left. Carlos Manuel Bush MD Chest X-Ray 02/08/17 0000 Signed Impressions: Service Date/Time: January 16:22 - CONCLUSION: Chest tube in good position. Tip overlies the apex. Cam Bowen MD Objective Remarks GENERAL: NAD SKIN: Warm and dry. HEAD: Normocephalic. EYES: No scleral icterus. No injection or drainage. NECK: Supple, trachea midline. No JVD or lymphadenopathy. CARDIOVASCULAR: Regular rate and rhythm without murmurs, gallops, or rubs. Chest tube in place left-sided RESPIRATORY: Breath sounds decrease bilaterally L>R. No accessory muscle use. GASTROINTESTINAL: Abdomen soft, non-tender, nondistended. MUSCULOSKELETAL: No cyanosis, or edema. BACK: Nontender without obvious deformity. No CVA tenderness. A/P Problem List: (1) Tension pneumothorax, spontaneous ICD Code: J93.0 Status: Acute (2) COPD with emphysema ICD Code: J43.9 Status: Acute (3) Tobacco smoke exposure ICD Code: Z77.22 Status: Acute Assessment and Plan 56-year-old man with Left Spontaneous tension pneumothorax: -Chest CT 02/09/17 finding of persistent left anterior pneumothorax and repeat chest x-ray in a.m. 02/12/17 -Continue with chest tube and appreciate input from pulmonary medicine. DuoNeb when necessary - Cardiothoracic surgery consultation pending - Supplemental oxygen as needed - Pain control COPD with bullous emphysema: - Advised on tobacco cessation; continue DuoNeb when necessary DVT PPx: David Wooten MD Feb 11, 2017 11:39
--- NOTE | 2017-02-11 12:02 | HHI.PR ---
Subjective Remarks ALERT UP IN CHAIR CT IN PLACE NO SOB Objective Vital Signs Date Time Temp Pulse Resp B/P Pulse Ox O2 Delivery O2 Flow Rate FiO2 02/11/17 08:00 98.3 80 20 134/74 95 02/11/17 04:00 96.5 80 20 139/83 94 02/11/17 00:00 98.8 79 20 154/72 93 02/10/17 20:11 94 02/10/17 20:00 98.9 89 20 156/82 95 02/10/17 16:00 98.3 70 17 161/60 100 I/O 02/10/17 02/10/17 02/10/17 02/11/17 02/11/17 02/11/17 07:00 15:00 23:00 07:00 15:00 23:00 Intake Total 240 ml 340 ml 720 ml 0 ml Output Total 0 ml 100 ml 0 ml 0 ml Balance 240 ml 240 ml 720 ml 0 ml Intake Oral 240 ml 340 ml 720 ml 0 ml IV Total 0 ml Chest Tube Drainage Total 0 ml 100 ml 0 ml 0 ml # Voids 2 3 3 2 # Bowel Movements 1 1 Result Diagram: 02/10/17 0417 02/10/17 041 Objective Remarks GENERAL: SKIN: Warm and dry. HEAD: Atraumatic. Normocephalic. EYES: Pupils equal and round. No scleral icterus. No injection or drainage. ENT: No nasal bleeding or discharge. Mucous membranes pink and moist. NECK: Trachea midline. No JVD. CARDIOVASCULAR: Regular rate and rhythm. RESPIRATORY: No accessory muscle use. Clear to auscultation. Breath sounds equal bilaterally. GASTROINTESTINAL: Abdomen soft, non-tender, nondistended. Hepatic and splenic margins not palpable. MUSCULOSKELETAL: Extremities without clubbing, cyanosis, or edema. No obvious deformities. NEUROLOGICAL: Awake and alert. No obvious cranial nerve deficits. Motor grossly within normal limits. Five out of 5 muscle strength in the arms and legs. Normal speech. PSYCHIATRIC: Appropriate mood and affect; insight and judgment normal. Assessment and Plan Assessment and Plan ASSESSMENT SPONTANEOUS PNX COPD CT LESS LEAK CT scan reviewed PLAN MONITOR CT BRONCHODILATOR THERAPY Iqra Escalona MD Feb 11, 2017 12:02
[2017-02-12] VITALS: BP 136/78; PULSE 80; RESP 20; TEMP 97.4; O2SAT 96
[2017-02-12 04:00] VITALS: BP 139/80; PULSE 76; RESP 20; TEMP 98.2; O2SAT 95
--- NOTE | 2017-02-12 07:08 | RADRPT ---
EXAM DATE/TIME: 02/12/2017 05:37 [facility] COMPARISON: CHEST SINGLE AP, February 08, 2017, 16:22. INDICATIONS : Short of breath, evaluate pneumothorax MEDICAL HISTORY : Chronic obstructive pulmonary disease. SURGICAL HISTORY : right lobectomy, left chest tube ENCOUNTER: Subsequent ACUITY: 1 week PAIN SCORE: 8/10 LOCATION: Bilateral chest FINDINGS: A left chest tube is in place. There is a tiny left apical pneumothorax with 2 mm of separation. Ther e is subcutaneous emphysema along the left chest wall. The left lung is grossly clear. There some mil d atelectasis in the right upper lung. Otherwise, the right lungs grossly clear. There are no pleural effusions or pulmonary edema. Heart size is stable. The bony structures are stable. CONCLUSION: Left chest tube in place with a 2 mm left apical pneumothorax. Edwardo Griggs MD on February 12, 2017 at 7:05 Board Certified Radiologist. This report was verified electronically.
[2017-02-12 08:00] VITALS: BP 147/86; PULSE 86; RESP 17; TEMP 98.2; O2SAT 94
--- NOTE | 2017-02-12 08:29 | MB ---
cc: VICKY VILLASEÑOR MD DATE OF CONSULTATION 02/09/17 HISTORY OF PRESENT ILLNESS A 56-year-old black male who presented to the emergency room, apparently, was having some nausea, vomiting, diarrhea and during a vomiting episode he developed some shortness of breath, presented to the emergency room. He has had a history of a spontaneous pneumothorax on the right and left in the past. The initial one was on the left 8 years ago where they just placed a chest tube and then this reoccurred on the right back in 2012 where he had a bronchoscopy, right upper lobe segmentectomy, right upper lobe wedge resection, right lower lobe wedge resection and parietal pleurectomy for recurrent right pneumothorax secondary to severe bullous emphysema. The patient was evaluated in the emergency department, had a large left tension pneumothorax and they placed a chest tube in the ED with resolution of the pneumothorax, however, he still has an air leak and some subcutaneous emphysema. We were consulted regarding possible bullectomy on the left. The patient is somewhat adamant at this time that he does not want repeat surgery like he had in 2013 and still has pain on his right side from that surgery. In the meantime, we will order a CT chest to reevaluate for this bullous emphysema and for further pulmonary anatomy. PAST MEDICAL HISTORY His past medical history prior right and left pneumothorax with prior surgery as above in the HPI. COPD. Tobacco abuse. He stopped several years ago but still has secondhand smoke. ALLERGIES He has no known allergies. MEDICATIONS He takes: 1. Bentyl. 2. Protonix. FAMILY HISTORY Positive for diabetes. SOCIAL HISTORY Occasional alcohol. No illicit drugs. Smoked up until 4 years ago. REVIEW OF SYSTEMS 12 point as HPI, otherwise, negative. PHYSICAL EXAMINATION VITAL SIGNS: On exam blood pressure 130/80, heart rate of 80, respiratory rate of 18. GENERAL: Patient is awake, alert, in no acute distress. HEENT: Head is normocephalic, atraumatic. Pupils are equal and reactive. Oral mucosa pink, moist. NECK: Supple. No JVD. HEART: Heart sounds S1-S2. Regular rate and rhythm. No rubs, murmurs, gallops. LUNGS: Diminished on the left lobe area. He does have some subcu emphysema left upper chest, left arm. He has got a chest tube in the left lateral chest wall to wall suction and Pleur-Evac with positive 2 to 3+ air leak and some serous drainage. ABDOMEN: Abdomen is soft, flat, nontender. No masses or organomegaly. EXTREMITIES: No cyanosis, clubbing or edema. LABORATORY DATA Lab work shows hemoglobin 13, hematocrit 40, white cell count 5.7, platelet count 184, sodium 138, potassium 3.8, BUN of 18, creatinine 1.02, INR 1.0. IMPRESSION This is a 56-year-old male with history of COPD and bullous emphysema, prior bilateral pneumothorax in the past with prior history of recurrent right pneumothorax requiring right upper segmentectomy, right upper lobe wedge resection, right lower lobe wedge resection, partial pleurectomy back [place] [address] Félix Rosario. He now will require a CT chest to reevaluate the left pleural area and evaluate if need for bullectomy on the left. This was discussed with the patient. Again, he is somewhat adamant about not having any repeat surgery. Would continue the chest tube to wall suction at this time. Dr. Acuña will be covering for Dr. Villaseñor over the weekend to evaluate need for surgery at that time. Dictated by LAKSHMI Becker Vicky LEDEZMA/JENNIFER /3:28 PM /8:28 AM
[2017-02-12] MEDS: PANTOPRAZOLE SOD 20 MG DELAYED RELEASE TAB PO SCH (08:56)
[2017-02-12] MEDS: ACETAMINOPHEN/HYDROcodone 325 MG/7.5 MG TAB PO PRN ×3 (08:56→19:46)
[2017-02-12] MEDS: SODIUM CHLORIDE 0.9% FLUSH 10 ML FLUSH IV FLUSH SCH ×2 (08:56→19:46)
--- NOTE | 2017-02-12 10:40 | HHI.PR ---
Subjective Remarks Follow-up left spontaneous tension pneumothorax 02/10/17-patient seen and examined, denies any shortness of breath or left- sided chest pain. Patient states, he would not agree on any surgical intervention 02/11/17-patient seen and examined, although he denies shortness of breath or chest pain patient appears tired. 02/12/17-patient seen and examined, denies any chest pain or shortness of breath. Repeat chest x-ray with persistent pneumothorax Objective Vitals Vital Signs Date Time Temp Pulse Resp B/P Pulse Ox O2 Delivery O2 Flow Rate FiO2 02/12/17 08:00 98.2 86 17 147/86 94 02/12/17 04:00 98.2 76 20 139/80 95 02/12/17 00:00 97.4 80 20 136/78 96 02/11/17 20:54 80 02/11/17 20:00 98.0 78 20 148/82 95 02/11/17 16:00 98.7 82 20 152/88 97 02/11/17 12:00 98.5 93 20 144/89 96 I/O 02/11/17 02/11/17 02/11/17 02/12/17 02/12/17 02/12/17 07:00 15:00 23:00 07:00 15:00 23:00 Intake Total 0 ml 720 ml 240 ml Output Total 0 ml 50 ml 500 ml Balance 0 ml 720 ml -50 ml -260 ml Intake Oral 0 ml 720 ml 240 ml Output Urine Total 500 ml Chest Tube Drainage Total 0 ml 50 ml 0 ml # Voids 2 3 # Bowel Movements 1 0 Result Diagram: 02/10/17 0417 02/10/17 0417 Imaging Last Impressions Chest X-Ray 02/12/17 0600 Signed Impressions: Service Date/Time: Sunday, February 12, 2017 05:37 - CONCLUSION: Left chest tube in place with a 2 mm left apical pneumothorax. Edwardo Griggs MD Chest CT 02/09/17 0000 Signed Impressions: Service Date/Time: Thursday, February 09, 2017 18:44 - CONCLUSION: Small persistent anterior pneumothorax on the left. Carlos Manuel Bush MD Objective Remarks GENERAL: NAD SKIN: Warm and dry. HEAD: Normocephalic. EYES: No scleral icterus. No injection or drainage. NECK: Supple, trachea midline. No JVD or lymphadenopathy. CARDIOVASCULAR: Regular rate and rhythm without murmurs, gallops, or rubs. Chest tube in place left-sided RESPIRATORY: Breath sounds decrease bilaterally L>R. No accessory muscle use. GASTROINTESTINAL: Abdomen soft, non-tender, nondistended. MUSCULOSKELETAL: No cyanosis, or edema. BACK: Nontender without obvious deformity. No CVA tenderness. A/P Problem List: (1) Tension pneumothorax, spontaneous ICD Code: J93.0 Status: Acute (2) COPD with emphysema ICD Code: J43.9 Status: Acute (3) Tobacco smoke exposure ICD Code: Z77.22 Status: Acute Assessment and Plan 56-year-old man with Left Spontaneous tension pneumothorax: -Chest CT 02/09/17 finding of persistent left anterior pneumothorax and repeat chest x-ray today 02/12/17 with persistent pneumothorax -Continue with chest tube and appreciate input from pulmonary medicine. DuoNeb when necessary - Cardiothoracic surgery consultation appreciated - Supplemental oxygen as needed - Pain control COPD with bullous emphysema: - Advised on tobacco cessation; continue DuoNeb when necessary DVT PPx: David Wooten MD Feb 12, 2017 10:40
[2017-02-12 12:00] VITALS: BP 137/74; PULSE 80; RESP 16; TEMP 98.1; O2SAT 94
--- NOTE | 2017-02-12 15:03 | PD.CAR.PN ---
CVT Progress Note Subjective/Hospital Course: 02/12 ct chest noted bullae apex of left lung chest tube to wall suction, +2 air leak pressure dressing to chest tube site pt does not want redo surgery, he is however willing to speak with Dr Estevez in am Objective: GENERAL: SKIN: Warm and dry. HEAD: Normocephalic. EYES: No scleral icterus. No injection or drainage. NECK: Supple, trachea midline. No JVD or lymphadenopathy. CARDIOVASCULAR: Regular rate and rhythm without murmurs, gallops, or rubs. RESPIRATORY: diminished left lower lobe/ chest tube to wall suction / + air leak drained 50cc/ 12 hrs Breath sounds equal bilaterally. No accessory muscle use. GASTROINTESTINAL: Abdomen soft, non-tender, nondistended. MUSCULOSKELETAL: No cyanosis, or edema. BACK: Nontender without obvious deformity. No CVA tenderness. Vital Signs Date Time Temp Pulse Resp B/P Pulse Ox O2 Delivery O2 Flow Rate FiO2 02/12/17 12:00 98.1 80 16 137/74 94 02/12/17 08:00 98.2 86 17 147/86 94 02/12/17 04:00 98.2 76 20 139/80 95 02/12/17 00:00 97.4 80 20 136/78 96 02/11/17 20:54 80 02/11/17 20:00 98.0 78 20 148/82 95 02/11/17 16:00 98.7 82 20 152/88 97 Result Diagram: 02/10/17 0417 02/10/17 0417 (1) COPD with emphysema (2) Tension pneumothorax, spontaneous (3) Bullous emphysema with collapse Plan: keep chest tube to wall suction Dr Estevez will speak with pt in am Deb Kamara Feb 12, 2017 15:03
[2017-02-12 16:00] VITALS: BP 144/82; PULSE 82; RESP 13; TEMP 99.1; O2SAT 95
--- NOTE | 2017-02-12 18:08 | HHI.PR ---
Subjective Remarks ALERT UP IN CHAIR CT IN PLACE NO SOB Objective Vital Signs Date Time Temp Pulse Resp B/P Pulse Ox O2 Delivery O2 Flow Rate FiO2 02/12/17 12:00 98.1 80 16 137/74 94 02/12/17 08:00 98.2 86 17 147/86 94 02/12/17 04:00 98.2 76 20 139/80 95 02/12/17 00:00 97.4 80 20 136/78 96 02/11/17 20:54 80 02/11/17 20:00 98.0 78 20 148/82 95 I/O 02/11/17 02/11/17 02/11/17 02/12/17 02/12/17 02/12/17 07:00 15:00 23:00 07:00 15:00 23:00 Intake Total 0 ml 720 ml 240 ml 840 ml Output Total 0 ml 50 ml 500 ml 100 ml Balance 0 ml 720 ml -50 ml -260 ml 740 ml Intake Oral 0 ml 720 ml 240 ml 840 ml Output Urine Total 500 ml Chest Tube Drainage Total 0 ml 50 ml 0 ml 100 ml # Voids 2 3 4 # Bowel Movements 1 0 0 Result Diagram: 02/10/17 0417 02/10/17 0417 Objective Remarks GENERAL: SKIN: Warm and dry. HEAD: Atraumatic. Normocephalic. EYES: Pupils equal and round. No scleral icterus. No injection or drainage. ENT: No nasal bleeding or discharge. Mucous membranes pink and moist. NECK: Trachea midline. No JVD. CARDIOVASCULAR: Regular rate and rhythm. RESPIRATORY: No accessory muscle use. Clear to auscultation. Breath sounds equal bilaterally. GASTROINTESTINAL: Abdomen soft, non-tender, nondistended. Hepatic and splenic margins not palpable. MUSCULOSKELETAL: Extremities without clubbing, cyanosis, or edema. No obvious deformities. NEUROLOGICAL: Awake and alert. No obvious cranial nerve deficits. Motor grossly within normal limits. Five out of 5 muscle strength in the arms and legs. Normal speech. PSYCHIATRIC: Appropriate mood and affect; insight and judgment normal. Assessment and Plan Assessment and Plan ASSESSMENT SPONTANEOUS PNX COPD CT LESS LEAK CT scan reviewed PLAN MONITOR CT BRONCHODILATOR THERAPY Iqra Escalona MD Feb 12, 2017 18:08
[2017-02-12 20:00] VITALS: BP 134/78; PULSE 79; PULSE 81; RESP 20; TEMP 98.6; O2SAT 96
[2017-02-13] VITALS: BP 127/80; PULSE 80; RESP 20; TEMP 97.4; O2SAT 96
[2017-02-13 08:00] VITALS: BP 141/69; PULSE 103; RESP 16; TEMP 97.6; O2SAT 95
--- NOTE | 2017-02-13 08:27 | HHI.PR ---
Subjective Remarks ALERT UP IN CHAIR CT IN PLACE NO SOB Objective Vital Signs Date Time Temp Pulse Resp B/P Pulse Ox O2 Delivery O2 Flow Rate FiO2 02/13/17 06:30 18 02/13/17 00:00 97.4 80 20 127/80 96 02/12/17 20:46 16 02/12/17 20:00 98.6 81 20 134/78 96 02/12/17 20:00 79 02/12/17 16:00 99.1 82 13 144/82 95 02/12/17 12:00 98.1 80 16 137/74 94 I/O 02/12/17 02/12/17 02/12/17 02/13/17 02/13/17 02/13/17 07:00 15:00 23:00 07:00 15:00 23:00 Intake Total 240 ml 840 ml 440 ml 220 ml Output Total 500 ml 100 ml 567 ml 505 ml Balance -260 ml 740 ml -127 ml -285 ml Intake Oral 240 ml 840 ml 440 ml 220 ml Output Urine Total 500 ml 550 ml 500 ml Chest Tube Drainage Total 0 ml 100 ml 17 ml 5 ml # Voids 4 # Bowel Movements 0 0 0 Result Diagram: 02/10/17 0417 02/10/17 0417 Objective Remarks GENERAL: SKIN: Warm and dry. HEAD: Atraumatic. Normocephalic. EYES: Pupils equal and round. No scleral icterus. No injection or drainage. ENT: No nasal bleeding or discharge. Mucous membranes pink and moist. NECK: Trachea midline. No JVD. CARDIOVASCULAR: Regular rate and rhythm. RESPIRATORY: No accessory muscle use. Clear to auscultation. Breath sounds equal bilaterally. GASTROINTESTINAL: Abdomen soft, non-tender, nondistended. Hepatic and splenic margins not palpable. MUSCULOSKELETAL: Extremities without clubbing, cyanosis, or edema. No obvious deformities. NEUROLOGICAL: Awake and alert. No obvious cranial nerve deficits. Motor grossly within normal limits. Five out of 5 muscle strength in the arms and legs. Normal speech. PSYCHIATRIC: Appropriate mood and affect; insight and judgment normal. Assessment and Plan Assessment and Plan ASSESSMENT SPONTANEOUS PNX COPD CT NO LEAK CT scan reviewed PLAN MONITOR CT BRONCHODILATOR THERAPY Iqra Escalona MD Feb 13, 2017 08:27
[2017-02-13] MEDS: PANTOPRAZOLE SOD 20 MG DELAYED RELEASE TAB PO SCH (08:48)
[2017-02-13] MEDS: SODIUM CHLORIDE 0.9% FLUSH 10 ML FLUSH IV FLUSH SCH ×2 (08:48→22:16)
--- NOTE | 2017-02-13 10:22 | RADRPT ---
EXAM DATE/TIME: 02/13/2017 09:23 [facility] COMPARISON: CHEST SINGLE AP, February 08, 2017, 16:22. CHEST SINGLE AP, February 12, 2017, 5:37. CHEST PA & LAT, Joey h 2015, 9:07. INDICATIONS : Evaluate pneumothorax. MEDICAL HISTORY : Chronic obstructive pulmonary disease. Prior spontaneous pneumthorax. SURGICAL HISTORY : Thoracotomy. ENCOUNTER: Subsequent ACUITY: 1 week PAIN SCORE: 0/10 LOCATION: Bilateral chest FINDINGS: Left chest drainage tube tip remains projected at the left apex. There is a small pneumothorax track ing along the upper lateral apex measuring 5 mm. Stable severity to the subcutaneous emphysema about the left lateral chest wall and left supraclavicular region. Left lung is clear. Anastomosis sutur es seen in the medial right lung. No infiltrates in right lung. The heart is normal in size. Both hemidiaphragms well delineated. CONCLUSION: Left chest tube position is stable. 5 mm lateral left apical pneumothorax. Parmjit Salcido MD on February 13, 2017 at 10:17 Board Certified Radiologist. This report was verified electronically.
[2017-02-13 12:00] VITALS: BP 127/86; PULSE 96; RESP 17; TEMP 98.6; O2SAT 95
--- NOTE | 2017-02-13 12:09 | HHI.PR ---
Subjective Remarks Follow-up left spontaneous tension pneumothorax 02/10/17-patient seen and examined, denies any shortness of breath or left- sided chest pain. Patient states, he would not agree on any surgical intervention 02/11/17-patient seen and examined, although he denies shortness of breath or chest pain patient appears tired. 02/12/17-patient seen and examined, denies any chest pain or shortness of breath. Repeat chest x-ray with persistent pneumothorax 02/13/17-patient seen and examined, repeat chest x-ray today with finding of 5 mm lateral left apical pneumothorax. Denies any chest pain or shortness of breath Objective Vitals Vital Signs Date Time Temp Pulse Resp B/P Pulse Ox O2 Delivery O2 Flow Rate FiO2 02/13/17 08:00 97.6 103 16 141/69 95 02/13/17 06:30 18 02/13/17 00:00 97.4 80 20 127/80 96 02/12/17 20:46 16 02/12/17 20:00 98.6 81 20 134/78 96 02/12/17 20:00 79 02/12/17 16:00 99.1 82 13 144/82 95 I/O 02/12/17 02/12/17 02/12/17 02/13/17 02/13/17 02/13/17 07:00 15:00 23:00 07:00 15:00 23:00 Intake Total 240 ml 840 ml 440 ml 220 ml Output Total 500 ml 100 ml 567 ml 505 ml Balance -260 ml 740 ml -127 ml -285 ml Intake Oral 240 ml 840 ml 440 ml 220 ml Output Urine Total 500 ml 550 ml 500 ml Chest Tube Drainage Total 0 ml 100 ml 17 ml 5 ml # Voids 4 # Bowel Movements 0 0 0 Result Diagram: 02/10/17 0417 02/10/17 0417 Imaging Last Impressions Chest X-Ray 02/13/17 0000 Signed Impressions: Service Date/Time: Monday, February 13, 2017 09:23 - CONCLUSION: Left chest tube position is stable. 5 mm lateral left apical pneumothorax. Parmjit Salcido MD Chest CT 02/09/17 0000 Signed Impressions: Service Date/Time: Thursday, February 09, 2017 18:44 - CONCLUSION: Small persistent anterior pneumothorax on the left. Carlos Manuel Buhs MD Objective Remarks GENERAL: NAD SKIN: Warm and dry. HEAD: Normocephalic. EYES: No scleral icterus. No injection or drainage. NECK: Supple, trachea midline. No JVD or lymphadenopathy. CARDIOVASCULAR: Regular rate and rhythm without murmurs, gallops, or rubs. Chest tube in place left-sided RESPIRATORY: Breath sounds decrease bilaterally L>R. No accessory muscle use. GASTROINTESTINAL: Abdomen soft, non-tender, nondistended. MUSCULOSKELETAL: No cyanosis, or edema. BACK: Nontender without obvious deformity. No CVA tenderness. A/P Problem List: (1) Tension pneumothorax, spontaneous ICD Code: J93.0 Status: Acute (2) COPD with emphysema ICD Code: J43.9 Status: Acute (3) Tobacco smoke exposure ICD Code: Z77.22 Status: Acute Assessment and Plan 56-year-old man with Left Spontaneous tension pneumothorax: -Chest CT 02/09/17 finding of persistent left anterior pneumothorax and repeat chest x-ray today 02/13/17 with 5 mm lateral left apical pneumothorax -Continue with chest tube and appreciate input from pulmonary medicine. DuoNeb when necessary - Cardiothoracic surgery consultation appreciated; however patient is hesitant about proceeding with possible surgical intervention - Supplemental oxygen as needed - Pain control COPD with bullous emphysema: - Advised on tobacco cessation; continue DuoNeb when necessary DVT PPx: David Wooten MD Feb 13, 2017 12:09
[2017-02-13 16:00] VITALS: BP 134/84; PULSE 104; RESP 18; TEMP 98.5; O2SAT 97
--- NOTE | 2017-02-13 18:10 | PD.CAR.PN ---
CVT Progress Note Subjective/Hospital Course: 02/12 ct chest noted bullae apex of left lung chest tube to wall suction, +2 air leak pressure dressing to chest tube site pt does not want redo surgery, he is however willing to speak with Dr Estevez in am 02/13 still has + 1 air leak small left apical ptx does not want any surgery if chest tube can be safely removed will see prn Objective: Vital Signs Date Time Temp Pulse Resp B/P Pulse Ox O2 Delivery O2 Flow Rate FiO2 02/13/17 16:00 98.5 104 18 134/84 97 02/13/17 12:00 98.6 96 17 127/86 95 02/13/17 08:00 97.6 103 16 141/69 95 02/13/17 06:30 18 02/13/17 00:00 97.4 80 20 127/80 96 02/12/17 20:46 16 02/12/17 20:00 98.6 81 20 134/78 96 02/12/17 20:00 79 Result Diagram: 02/10/17 0417 02/10/17 0417 (1) COPD with emphysema (2) Tension pneumothorax, spontaneous (3) Bullous emphysema with collapse Plan: keep chest tube to wall suction please notify use if unable to remove chest tube and pt willing to undergo surgery Deb Kamara Feb 13, 2017 18:10
[2017-02-13 20:00] VITALS: BP 131/76; PULSE 100; RESP 20; TEMP 98.8; O2SAT 95
[2017-02-13] MEDS: ACETAMINOPHEN/HYDROcodone 325 MG/7.5 MG TAB PO PRN (22:16)
[2017-02-14] VITALS (7 sets, daily range): BP systolic 101–157; BP diastolic 60–80; PULSE 67–99; RESP 16–20; TEMP 96.6–98.4; O2SAT 94–97
[2017-02-14 02:52] LABS: MAGNESIUM 2.3 MG/DL (1.5-2.5); POTASSIUM 4.2 MEQ/L (3.5-5.1)
[2017-02-14] MEDS: PANTOPRAZOLE SOD 20 MG DELAYED RELEASE TAB PO SCH (09:00)
[2017-02-14] MEDS: SODIUM CHLORIDE 0.9% FLUSH 10 ML FLUSH IV FLUSH SCH ×2 (09:00→22:52)
--- NOTE | 2017-02-14 11:50 | HHI.PR ---
Subjective Remarks Follow-up left spontaneous tension pneumothorax 02/10/17-patient seen and examined, denies any shortness of breath or left- sided chest pain. Patient states, he would not agree on any surgical intervention 02/11/17-patient seen and examined, although he denies shortness of breath or chest pain patient appears tired. 02/12/17-patient seen and examined, denies any chest pain or shortness of breath. Repeat chest x-ray with persistent pneumothorax 02/13/17-patient seen and examined, repeat chest x-ray today with finding of 5 mm lateral left apical pneumothorax. Denies any chest pain or shortness of breath 02/14/17-patient seen and examined, although he denies any shortness of breath however he is now agreeable to have surgery from cardiothoracic surgery Objective Vitals Vital Signs Date Time Temp Pulse Resp B/P Pulse Ox O2 Delivery O2 Flow Rate FiO2 02/14/17 08:00 96.6 80 16 157/67 94 02/14/17 04:00 98.1 76 20 118/75 94 02/14/17 00:58 97.8 89 20 123/63 97 02/14/17 00:00 98.4 88 20 101/71 96 02/13/17 23:16 18 02/13/17 20:00 98.8 100 20 131/76 95 02/13/17 16:00 98.5 104 18 134/84 97 02/13/17 12:00 98.6 96 17 127/86 95 I/O 02/13/17 02/13/17 02/13/17 02/14/17 02/14/17 02/14/17 07:00 15:00 23:00 07:00 15:00 23:00 Intake Total 220 ml 240 ml 480 ml 720 ml Output Total 505 ml 20 ml Balance -285 ml 220 ml 480 ml 720 ml Intake Oral 220 ml 240 ml 480 ml 720 ml Output Urine Total 500 ml Chest Tube Drainage Total 5 ml 20 ml # Voids 3 3 2 # Bowel Movements 0 2 Result Diagram: 02/10/17 0417 02/14/17 0220 Imaging Last Impressions Chest X-Ray 02/13/17 0000 Signed Impressions: Service Date/Time: Monday, February 13, 2017 09:23 - CONCLUSION: Left chest tube position is stable. 5 mm lateral left apical pneumothorax. Parmjit Salcido MD Chest CT 02/09/17 0000 Signed Impressions: Service Date/Time: Thursday, February 09, 2017 18:44 - CONCLUSION: Small persistent anterior pneumothorax on the left. Carlos Manuel Bush MD Objective Remarks GENERAL: NAD SKIN: Warm and dry. HEAD: Normocephalic. EYES: No scleral icterus. No injection or drainage. NECK: Supple, trachea midline. No JVD or lymphadenopathy. CARDIOVASCULAR: Regular rate and rhythm without murmurs, gallops, or rubs. Chest tube in place left-sided RESPIRATORY: Breath sounds decrease bilaterally L>R. No accessory muscle use. GASTROINTESTINAL: Abdomen soft, non-tender, nondistended. MUSCULOSKELETAL: No cyanosis, or edema. BACK: Nontender without obvious deformity. No CVA tenderness. A/P Problem List: (1) Tension pneumothorax, spontaneous ICD Code: J93.0 Status: Acute (2) COPD with emphysema ICD Code: J43.9 Status: Acute (3) Tobacco smoke exposure ICD Code: Z77.22 Status: Acute Assessment and Plan 56-year-old man with Left Spontaneous tension pneumothorax: -Chest CT 02/09/17 finding of persistent left anterior pneumothorax and repeat chest x-ray today 02/13/17 with 5 mm lateral left apical pneumothorax -Continue with chest tube and appreciate input from pulmonary medicine. DuoNeb when necessary - Cardiothoracic surgery consultation appreciated; patient was initially reluctant and hesitant to have surgery however today 02/14/17 he is now agreeable. - Supplemental oxygen as needed - Pain control COPD with bullous emphysema: - Advised on tobacco cessation; continue DuoNeb when necessary DVT PPx: David Wooten MD Feb 14, 2017 11:50
--- NOTE | 2017-02-14 18:13 | HHI.PR ---
Subjective Remarks ALERT UP IN CHAIR CT IN PLACE NO SOB Objective Vital Signs Date Time Temp Pulse Resp B/P Pulse Ox O2 Delivery O2 Flow Rate FiO2 02/14/17 16:00 96.7 67 16 151/60 96 02/14/17 12:00 97.7 70 17 153/70 95 02/14/17 08:00 96.6 80 16 157/67 94 02/14/17 04:00 98.1 76 20 118/75 94 02/14/17 00:58 97.8 89 20 123/63 97 02/14/17 00:00 98.4 88 20 101/71 96 02/13/17 23:16 18 02/13/17 20:00 98.8 100 20 131/76 95 I/O 02/13/17 02/13/17 02/13/17 02/14/17 02/14/17 02/14/17 07:00 15:00 23:00 07:00 15:00 23:00 Intake Total 220 ml 240 ml 480 ml 720 ml 240 ml Output Total 505 ml 20 ml 75 ml Balance -285 ml 220 ml 480 ml 720 ml 165 ml Intake Oral 220 ml 240 ml 480 ml 720 ml 240 ml Output Urine Total 500 ml Chest Tube Drainage Total 5 ml 20 ml 75 ml # Voids 3 3 2 3 # Bowel Movements 0 2 0 Result Diagram: 02/10/17 0417 02/14/17 0220 Objective Remarks GENERAL: SKIN: Warm and dry. HEAD: Atraumatic. Normocephalic. EYES: Pupils equal and round. No scleral icterus. No injection or drainage. ENT: No nasal bleeding or discharge. Mucous membranes pink and moist. NECK: Trachea midline. No JVD. CARDIOVASCULAR: Regular rate and rhythm. RESPIRATORY: No accessory muscle use. Clear to auscultation. Breath sounds equal bilaterally. GASTROINTESTINAL: Abdomen soft, non-tender, nondistended. Hepatic and splenic margins not palpable. MUSCULOSKELETAL: Extremities without clubbing, cyanosis, or edema. No obvious deformities. NEUROLOGICAL: Awake and alert. No obvious cranial nerve deficits. Motor grossly within normal limits. Five out of 5 muscle strength in the arms and legs. Normal speech. PSYCHIATRIC: Appropriate mood and affect; insight and judgment normal. Assessment and Plan Assessment and Plan ASSESSMENT SPONTANEOUS PNX COPD CT LEAKing CT scan reviewed PLAN MONITOR CT BRONCHODILATOR THERAPY patient now ready for surgery Iqra Escalona MD Feb 14, 2017 18:12
[2017-02-14] MEDS: ACETAMINOPHEN/HYDROcodone 325 MG/7.5 MG TAB PO PRN (22:51)
[2017-02-15] VITALS (7 sets, daily range): BP systolic 59–134; BP diastolic 55–82; PULSE 80–93; RESP 18–20; TEMP 97.3–98.3; O2SAT 96–100
[2017-02-15] MEDS: PANTOPRAZOLE SOD 20 MG DELAYED RELEASE TAB PO SCH (08:19)
[2017-02-15] MEDS: SODIUM CHLORIDE 0.9% FLUSH 10 ML FLUSH IV FLUSH SCH ×2 (08:20→21:00)
--- NOTE | 2017-02-15 08:48 | HHI.PR ---
Subjective Remarks ALERT UP IN CHAIR CT IN PLACE NO SOB Objective Vital Signs Date Time Temp Pulse Resp B/P Pulse Ox O2 Delivery O2 Flow Rate FiO2 02/15/17 08:00 97.7 93 18 59/ 96 02/15/17 04:00 97.4 88 20 134/82 100 02/15/17 00:00 97.3 90 18 74/ 100 02/14/17 20:00 98.0 99 20 131/80 97 02/14/17 16:00 96.7 67 16 151/60 96 02/14/17 12:00 97.7 70 17 153/70 95 I/O 02/14/17 02/14/17 02/14/17 02/15/17 02/15/17 02/15/17 07:00 15:00 23:00 07:00 15:00 23:00 Intake Total 1200 ml 240 ml 480 ml 240 ml 120 ml Output Total 650 ml 75 ml 700 ml 480 ml Balance 550 ml 165 ml -220 ml -240 ml 120 ml Intake Oral 1200 ml 240 ml 480 ml 240 ml 120 ml Output Urine Total 650 ml 700 ml 450 ml Chest Tube Drainage Total 75 ml 30 ml # Voids 2 3 # Bowel Movements 0 0 0 0 Result Diagram: 02/14/17 0220 Objective Remarks GENERAL: SKIN: Warm and dry. HEAD: Atraumatic. Normocephalic. EYES: Pupils equal and round. No scleral icterus. No injection or drainage. ENT: No nasal bleeding or discharge. Mucous membranes pink and moist. NECK: Trachea midline. No JVD. CARDIOVASCULAR: Regular rate and rhythm. RESPIRATORY: No accessory muscle use. Clear to auscultation. Breath sounds equal bilaterally. GASTROINTESTINAL: Abdomen soft, non-tender, nondistended. Hepatic and splenic margins not palpable. MUSCULOSKELETAL: Extremities without clubbing, cyanosis, or edema. No obvious deformities. NEUROLOGICAL: Awake and alert. No obvious cranial nerve deficits. Motor grossly within normal limits. Five out of 5 muscle strength in the arms and legs. Normal speech. PSYCHIATRIC: Appropriate mood and affect; insight and judgment normal. Assessment and Plan Assessment and Plan ASSESSMENT SPONTANEOUS PNX COPD CT LEAKing CT scan reviewed PLAN MONITOR CT BRONCHODILATOR THERAPY patient now ready for surgery Iqra Escalona MD Feb 15, 2017 08:48
--- NOTE | 2017-02-15 09:38 | HHI.PR ---
Subjective Remarks Follow-up left spontaneous tension pneumothorax 02/10/17-patient seen and examined, denies any shortness of breath or left- sided chest pain. Patient states, he would not agree on any surgical intervention 02/11/17-patient seen and examined, although he denies shortness of breath or chest pain patient appears tired. 02/12/17-patient seen and examined, denies any chest pain or shortness of breath. Repeat chest x-ray with persistent pneumothorax 02/13/17-patient seen and examined, repeat chest x-ray today with finding of 5 mm lateral left apical pneumothorax. Denies any chest pain or shortness of breath 02/14/17-patient seen and examined, although he denies any shortness of breath however he is now agreeable to have surgery from cardiothoracic surgery 02/15/17-patient seen and examined, denies any significant shortness of breath. Reports pain control. Patient is not agreeable for surgery. Objective Vitals Vital Signs Date Time Temp Pulse Resp B/P Pulse Ox O2 Delivery O2 Flow Rate FiO2 02/15/17 08:00 97.7 93 18 59/ 96 02/15/17 04:00 97.4 88 20 134/82 100 02/15/17 00:00 97.3 90 18 74/ 100 02/14/17 20:00 98.0 99 20 131/80 97 02/14/17 16:00 96.7 67 16 151/60 96 02/14/17 12:00 97.7 70 17 153/70 95 I/O 02/14/17 02/14/17 02/14/17 02/15/17 02/15/17 02/15/17 07:00 15:00 23:00 07:00 15:00 23:00 Intake Total 1200 ml 240 ml 480 ml 240 ml 120 ml Output Total 650 ml 75 ml 700 ml 480 ml Balance 550 ml 165 ml -220 ml -240 ml 120 ml Intake Oral 1200 ml 240 ml 480 ml 240 ml 120 ml Output Urine Total 650 ml 700 ml 450 ml Chest Tube Drainage Total 75 ml 30 ml # Voids 2 3 # Bowel Movements 0 0 0 0 Result Diagram: 02/14/17 0220 Imaging Last Impressions Chest X-Ray 02/13/17 0000 Signed Impressions: Service Date/Time: Monday, February 13, 2017 09:23 - CONCLUSION: Left chest tube position is stable. 5 mm lateral left apical pneumothorax. Parmjit Salcido MD Chest CT 02/09/17 0000 Signed Impressions: Service Date/Time: Thursday, February 09, 2017 18:44 - CONCLUSION: Small persistent anterior pneumothorax on the left. Carlos Manuel Bush MD Objective Remarks GENERAL: NAD SKIN: Warm and dry. HEAD: Normocephalic. EYES: No scleral icterus. No injection or drainage. NECK: Supple, trachea midline. No JVD or lymphadenopathy. CARDIOVASCULAR: Regular rate and rhythm without murmurs, gallops, or rubs. Chest tube in place left-sided RESPIRATORY: Breath sounds decrease bilaterally L>R. No accessory muscle use. GASTROINTESTINAL: Abdomen soft, non-tender, nondistended. MUSCULOSKELETAL: No cyanosis, or edema. BACK: Nontender without obvious deformity. No CVA tenderness. A/P Problem List: (1) Tension pneumothorax, spontaneous ICD Code: J93.0 Status: Acute (2) COPD with emphysema ICD Code: J43.9 Status: Acute (3) Tobacco smoke exposure ICD Code: Z77.22 Status: Acute Assessment and Plan 56-year-old man with Left Spontaneous tension pneumothorax: -Chest CT 02/09/17 finding of persistent left anterior pneumothorax and repeat chest x-ray today 02/13/17 with 5 mm lateral left apical pneumothorax -Continue with chest tube and appreciate input from pulmonary medicine. DuoNeb when necessary - Cardiothoracic surgery consultation appreciated; patient is finally now agreeable for surgery possible VATS - Supplemental oxygen as needed - Pain control COPD with bullous emphysema: - Advised on tobacco cessation; continue DuoNeb when necessary DVT PPx: David Wooten MD Feb 15, 2017 09:38
--- NOTE | 2017-02-15 16:23 | PD.CAR.PN ---
CVT Progress Note Subjective/Hospital Course: 02/12 ct chest noted bullae apex of left lung chest tube to wall suction, +2 air leak pressure dressing to chest tube site pt does not want redo surgery, he is however willing to speak with Dr Estevez in am 02/13 still has + 1 air leak small left apical ptx does not want any surgery if chest tube can be safely removed will see prn 02/15 pt still has +1-2 air leak in chest tube pt is now agreeable for surgery will schedule for surgery in am left VATS possible thoracotomy , bleb resection Objective: GENERAL: SKIN: Warm and dry. HEAD: Normocephalic. EYES: No scleral icterus. No injection or drainage. NECK: Supple, trachea midline. No JVD or lymphadenopathy. CARDIOVASCULAR: Regular rate and rhythm without murmurs, gallops, or rubs. RESPIRATORY: diminished on left chest tube to wall suction +1-2 air leak No accessory muscle use. GASTROINTESTINAL: Abdomen soft, non-tender, nondistended. MUSCULOSKELETAL: No cyanosis, or edema. BACK: Nontender without obvious deformity. No CVA tenderness. Vital Signs Date Time Temp Pulse Resp B/P Pulse Ox O2 Delivery O2 Flow Rate FiO2 02/15/17 12:00 98.3 80 19 118/76 96 02/15/17 08:00 97.7 93 18 59/ 96 02/15/17 04:00 97.4 88 20 134/82 100 02/15/17 00:00 97.3 90 18 74/ 100 02/14/17 20:00 98.0 99 20 131/80 97 Result Diagram: 02/14/17 0220 (1) COPD with emphysema (2) Tension pneumothorax, spontaneous (3) Bullous emphysema with collapse Plan: keep chest tube to wall suction NPO after Midnight for surgery in am Left VATS possible thoracotomy bleb resection Deb Kamara Feb 15, 2017 16:23
[2017-02-15] MEDS ORDERED: CEFAZOLIN INJ 500 MG in SODIUM CHLORIDE 0.9% IRR BTL 500 ML IRRIGATION SCH (16:30)
[2017-02-15] MEDS ORDERED: SODIUM CHLORIDE 0.9% FLUSH 10 ML FLUSH IV FLUSH PRN (16:30)
[2017-02-15] MEDS ORDERED: ceFAZolin 2 GM PREMIX 50 ML IV SCH (16:30)
[2017-02-15 18:14] LABS: PROTHROMBIN TIME - PATIENT 10.5 SEC (9.8-11.6)
[2017-02-15] MEDS: ACETAMINOPHEN/HYDROcodone 325 MG/7.5 MG TAB PO PRN (21:06)
[2017-02-16 00:06] VITALS: BP 117/71; PULSE 85; RESP 20; TEMP 97.8; O2SAT 96
[2017-02-16 02:22] LABS: BLOOD, URINE NEG (NEG); COMMENT (UR) CULT NOT INDICATED; CULTURE IF INDICATED CULT NOT INDICATED; GLUCOSE,URINE NEG (NEG); KETONE, URINE NEG (NEG); MUCUS URINE FEW /lpf (OCC); NITRITE,URINE NEG (NEG); PH, URINE 5.5 (5.0-8.5); SQUAMOUS EPITHELIAL CELL URINE <1 /hpf (0-5); URINE COLOR YELLOW (YELLW/STRAW)
[2017-02-16 03:59] VITALS: BP 138/71; PULSE 88; RESP 18; TEMP 97.9; O2SAT 95
[2017-02-16 08:00] VITALS: BP 130/81; PULSE 100; RESP 17; TEMP 97.7; O2SAT 98
[2017-02-16] MEDS: PANTOPRAZOLE SOD 20 MG DELAYED RELEASE TAB PO SCH (08:51)
[2017-02-16] MEDS: SODIUM CHLORIDE 0.9% FLUSH 10 ML FLUSH IV FLUSH SCH ×2 (08:52→21:00)
--- NOTE | 2017-02-16 09:17 | HHI.PR ---
Subjective Remarks ALERT UP IN CHAIR CT IN PLACE NO SOB Objective Vital Signs Date Time Temp Pulse Resp B/P Pulse Ox O2 Delivery O2 Flow Rate FiO2 02/16/17 08:00 97.7 100 17 130/81 98 02/16/17 03:59 97.9 88 18 138/71 95 02/16/17 00:06 97.8 85 20 117/71 96 02/15/17 22:32 18 02/15/17 22:30 88 02/15/17 20:00 97.6 89 18 132/82 96 02/15/17 16:00 98.0 91 20 128/55 98 02/15/17 12:00 98.3 80 19 118/76 96 I/O 02/15/17 02/15/17 02/15/17 02/16/17 02/16/17 02/16/17 07:00 15:00 23:00 07:00 15:00 23:00 Intake Total 240 ml 1060 ml 0 ml 0 ml Output Total 480 ml 675 ml 50 ml Balance -240 ml 385 ml -50 ml 0 ml Intake Oral 240 ml 1060 ml IV Total 0 ml 0 ml Output Urine Total 450 ml 600 ml Chest Tube Drainage Total 30 ml 75 ml 50 ml # Voids 2 2 # Bowel Movements 0 1 Result Diagram: 02/14/17 0220 Objective Remarks GENERAL: SKIN: Warm and dry. HEAD: Atraumatic. Normocephalic. EYES: Pupils equal and round. No scleral icterus. No injection or drainage. ENT: No nasal bleeding or discharge. Mucous membranes pink and moist. NECK: Trachea midline. No JVD. CARDIOVASCULAR: Regular rate and rhythm. RESPIRATORY: No accessory muscle use. Clear to auscultation. Breath sounds equal bilaterally. GASTROINTESTINAL: Abdomen soft, non-tender, nondistended. Hepatic and splenic margins not palpable. MUSCULOSKELETAL: Extremities without clubbing, cyanosis, or edema. No obvious deformities. NEUROLOGICAL: Awake and alert. No obvious cranial nerve deficits. Motor grossly within normal limits. Five out of 5 muscle strength in the arms and legs. Normal speech. PSYCHIATRIC: Appropriate mood and affect; insight and judgment normal. Assessment and Plan Assessment and Plan ASSESSMENT SPONTANEOUS PNX COPD CT LEAKing CT scan reviewed PLAN MONITOR CT BRONCHODILATOR THERAPY patient now ready for surgery Iqra Escalona MD Feb 16, 2017 09:17
--- NOTE | 2017-02-16 09:28 | HHI.PR ---
Subjective Remarks Follow-up left spontaneous tension pneumothorax 02/10/17-patient seen and examined, denies any shortness of breath or left- sided chest pain. Patient states, he would not agree on any surgical intervention 02/11/17-patient seen and examined, although he denies shortness of breath or chest pain patient appears tired. 02/12/17-patient seen and examined, denies any chest pain or shortness of breath. Repeat chest x-ray with persistent pneumothorax 02/13/17-patient seen and examined, repeat chest x-ray today with finding of 5 mm lateral left apical pneumothorax. Denies any chest pain or shortness of breath 02/14/17-patient seen and examined, although he denies any shortness of breath however he is now agreeable to have surgery from cardiothoracic surgery 02/15/17-patient seen and examined, denies any significant shortness of breath. Reports pain control. Patient is not agreeable for surgery. 02/16/17-patient seen and examined, currently nothing by mouth and no report of SOB/Chest pain Objective Vitals Vital Signs Date Time Temp Pulse Resp B/P Pulse Ox O2 Delivery O2 Flow Rate FiO2 02/16/17 08:00 97.7 100 17 130/81 98 02/16/17 03:59 97.9 88 18 138/71 95 02/16/17 00:06 97.8 85 20 117/71 96 02/15/17 22:32 18 02/15/17 22:30 88 02/15/17 20:00 97.6 89 18 132/82 96 02/15/17 16:00 98.0 91 20 128/55 98 02/15/17 12:00 98.3 80 19 118/76 96 I/O 02/15/17 02/15/17 02/15/17 02/16/17 02/16/17 02/16/17 07:00 15:00 23:00 07:00 15:00 23:00 Intake Total 240 ml 1060 ml 0 ml 0 ml Output Total 480 ml 675 ml 50 ml Balance -240 ml 385 ml -50 ml 0 ml Intake Oral 240 ml 1060 ml IV Total 0 ml 0 ml Output Urine Total 450 ml 600 ml Chest Tube Drainage Total 30 ml 75 ml 50 ml # Voids 2 2 # Bowel Movements 0 1 Result Diagram: 02/14/17 0220 Imaging Last Impressions Chest X-Ray 02/13/17 0000 Signed Impressions: Service Date/Time: Monday, February 13, 2017 09:23 - CONCLUSION: Left chest tube position is stable. 5 mm lateral left apical pneumothorax. Parmjit Salcido MD Chest CT 02/09/17 0000 Signed Impressions: Service Date/Time: Thursday, February 09, 2017 18:44 - CONCLUSION: Small persistent anterior pneumothorax on the left. Carlos Manuel Bush MD Objective Remarks GENERAL: NAD SKIN: Warm and dry. HEAD: Normocephalic. EYES: No scleral icterus. No injection or drainage. NECK: Supple, trachea midline. No JVD or lymphadenopathy. CARDIOVASCULAR: Regular rate and rhythm without murmurs, gallops, or rubs. Chest tube in place left-sided RESPIRATORY: Breath sounds decrease bilaterally L>R. No accessory muscle use. GASTROINTESTINAL: Abdomen soft, non-tender, nondistended. MUSCULOSKELETAL: No cyanosis, or edema. BACK: Nontender without obvious deformity. No CVA tenderness. A/P Problem List: (1) Tension pneumothorax, spontaneous ICD Code: J93.0 Status: Acute (2) COPD with emphysema ICD Code: J43.9 Status: Acute (3) Tobacco smoke exposure ICD Code: Z77.22 Status: Acute Assessment and Plan 56-year-old man with Left Spontaneous tension pneumothorax: -Chest CT 02/09/17 finding of persistent left anterior pneumothorax and repeat chest x-ray 02/13/17 with 5 mm lateral left apical pneumothorax -Continue with chest tube and appreciate input from pulmonary medicine. DuoNeb when necessary - Cardiothoracic surgery consultation appreciated and plan for VATS +/- thoracotomy, bleb resection today 02/16/17. Continue nothing by mouth - DuoNeb, Supplemental oxygen as needed - Pain control COPD with bullous emphysema: - Advised on tobacco cessation; continue DuoNeb when necessary DVT PPx: David Wooten MD Feb 16, 2017 09:28
[2017-02-16] MEDS ORDERED: BUPIVACAINE LIPOSO PF 1.3% INJ 20 ML, DEXAMETHASONE INJ 4 MG, MORPHINE INJ 10 MG in SOD... P-ARTICULR SCH (09:30)
[2017-02-16 11:00] VITALS: BP 128/69; PULSE 90; RESP 16; TEMP 98.2; O2SAT 92
[2017-02-16] MEDS ORDERED: PROPOFOL 200 MG/20 ML AMP IV ONE (12:00)
[2017-02-16] MEDS ORDERED: PHENYLEPH/NS 1000 MCG/10 ML SYR IV ONE (12:00)
[2017-02-16] MEDS ORDERED: NEOSTIGMINE 3 MG/3 ML SYR IV ONE (12:00)
[2017-02-16] MEDS ORDERED: NORMOSOL R INJ 1,000 ML IV ONE (12:00)
[2017-02-16] MEDS ORDERED: MIDAZOLAM HCL 2 MG/2 ML VIAL ONE (13:03)
[2017-02-16] MEDS ORDERED: STERILE TALC 5 GM VIAL OTHER ONE (14:45)
[2017-02-16] MEDS ORDERED: MAGNESIUM HYDROXIDE SUSP 30 ML CUP PO PRN (15:30)
[2017-02-16] MEDS ORDERED: ACETAMINOPHEN/HYDROcodone 325 MG/5 MG TAB PO PRN ×2 (15:30)
[2017-02-16] MEDS ORDERED: ACETAMINOPHEN 325 MG TAB PO PRN (15:30)
[2017-02-16] MEDS ORDERED: Post-op Orders (for Pharmacy) MISC OTHER ONE (15:30)
[2017-02-16] MEDS ORDERED: *morphine SULFATE 8 MG/ML PERIprocedure ONLY ONE ×3 (15:46→16:55)
[2017-02-16] MEDS ORDERED: fentaNYL CITRATE 250 MCG/5 ML AMP ONE (15:54)
[2017-02-16] MEDS: ACETAMINOPHEN 1000 MG/100 ML VIAL IV SCH ×2 (16:00→22:00)
[2017-02-16] MEDS: KETOROLAC TROMETHAMINE 30 MG/ML (IVP) VIAL IV PUSH SCH ×2 (16:00→22:00)
[2017-02-16] MEDS ORDERED: *RESP: ALBUTEROL 2.5 MG/3 ML NEB (PRN) PERIprocedural Use ONLY NEB ONE (16:15)
[2017-02-16] MEDS ORDERED: DO NOT ADM ANY ANTICOAGULANT DRUGS PRN (16:15)
--- NOTE | 2017-02-16 17:21 | PD.OP ---
cc: Maddi Estevez MD; Iqra Escalona MD Operative Report Date of Surgery: Feb 16, 2017 Preoperative Diagnosis: Postoperative Diagnosis: Procedure: 1. Left Video-Assisted Thoracoscopic Surgery (VATS). 2. Resection of Left Upper Lobe Bullae 3. Resection of Left Lower Lobe Bulla 4. Mechanical and Talc Pleurodesis 5. Intercostal Nerve Block . 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 COPD POSTOPERATIVE DIAGNOSES Same SURGICAL PROCEDURE 1. Left Video-Assisted Thoracoscopic Surgery (VATS). 2. Resection of Left Upper Lobe Bullae 3. Resection of Left Lower Lobe Bulla 4. Mechanical and Talc Pleurodesis 5. Intercostal Nerve Block SURGEON Maddi Estevez MD QUALITY IMPROVEMENT ENGINEER Vanessa Mac [place] CHAIRMANNoa correa, [facility] ANESTHESIA General double lumen endotracheal. PYROTECHNIC ASSEMBLER DAFNE Barlow MD PREPARATION ChloraPrep. COUNTS Needle, sponge, and instrument counts are correct. DRAINS One [address] COMPLICATIONS None. INDICATIONS The patient is a 49 yo gentleman with previous right thoracotomy and resection of bullae who now presents with PTX on left with persistent BPF. The patient is being brought to the operating room for surgical correction of the underlying pathology. DESCRIPTION OF PROCEDURE The patient was brought to the operating room and placed supine on the OR table. Following the induction of adequate general double lumen endotracheal anesthesia and placement of appropriate monitoring devices, the patient was placed in the right lateral decubitus position. The left chest and surrounding areas were then prepped and draped in a standard sterile fashion. A 5 mm camera port was introduced into the 7th intercostal space in mid axillary line, and the camera introduced. A second 5 mm port was then placed anteriorly under direct visual guidance and one posteriorly. The apical segment of the left upper lobe was grasped and resected using a KOMAL stapler. Three different resections were performed to include the majority of the bullae; two from the upper lobe and one from the lower lobe. The specimen were bagged and removed through the posterior port and sent for definitive histological analysis. Mechanical and talc pleurodesis was performed through the anterior port. The anterior port was removed and a [address] was placed into the pleural space and exited through the chest wall. This was maintained in place with a nonabsorbable suture. All of the entry sites were injected with Exparel. Following confirmation of the catheter in the proper place, the incisions were closed with [address] was attached to a suction device, and sterile dressing applied. Intercostal nerve block was performed using Ropivacaine/ Morphine solution at the level of the incisions as well as 2 rib spaces above and below. The patient tolerated the procedure well and was extubated and transferred to the recovery room in stable condition. Maddi Estevez MD Feb 16, 2017 17:21
--- NOTE | 2017-02-16 17:25 | RADRPT ---
EXAM DATE/TIME: 02/16/2017 16:13 [facility] COMPARISON: CHEST PA & LAT, February 13, 2017, 9:23. INDICATIONS : Status post thoracotomy. MEDICAL HISTORY : Chronic obstructive pulmonary disease. SURGICAL HISTORY : right lobectomy, left chest tube ENCOUNTER: Subsequent ACUITY: 1 day PAIN SCORE: Non-responsive. LOCATION: chest FINDINGS: Chest tube is present on the left side. Small left apical pneumothorax is seen. Extensive subcutaneou s emphysema seen on the left. Mild left lung base atelectasis and/or infiltrate is seen. Heart and me diastinum are unremarkable for technique. The rest of the examination has not significantly changed. CONCLUSION: Small left apical pneumothorax and slight left lung base atelectasis and/or infiltrate. Christina Alvarez MD on February 16, 2017 at 17:23 Board Certified Radiologist. This report was verified electronically.
[2017-02-16 20:03] VITALS: BP 137/80; PULSE 89; RESP 17; TEMP 97.6; O2SAT 94
[2017-02-16] MEDS: DOCUSATE CALCIUM 240 MG CAP PO SCH (21:00)
[2017-02-16 23:53] VITALS: BP 139/83; PULSE 100; RESP 18; TEMP 97.6; O2SAT 94
[2017-02-17] VITALS (7 sets, daily range): BP systolic 119–147; BP diastolic 75–111; PULSE 87–116; RESP 18–20; TEMP 98.2–100.2; O2SAT 90–93
[2017-02-17] MEDS: ONDANSETRON HCL 4 MG/2 ML VIAL IV PUSH PRN ×2 (02:21→22:44)
[2017-02-17] MEDS: KETOROLAC TROMETHAMINE 30 MG/ML (IVP) VIAL IV PUSH SCH ×2 (04:00→10:00)
[2017-02-17] MEDS: ACETAMINOPHEN 1000 MG/100 ML VIAL IV SCH ×2 (04:00→10:00)
[2017-02-17] MEDS ORDERED: MORPHINE SULFATE 4 MG/ML INJ IV PUSH ONE (05:15)
--- NOTE | 2017-02-17 06:58 | RADRPT ---
EXAM DATE/TIME: 02/17/2017 05:13 [facility] COMPARISON: CHEST SINGLE AP, February 16, 2017, 16:13. INDICATIONS : Shortness of breath. MEDICAL HISTORY : Chronic obstructive pulmonary disease. SURGICAL HISTORY : Right lobectomy, left chest tube ENCOUNTER: Subsequent ACUITY: 2 weeks PAIN SCORE: Non-responsive. LOCATION: Bilateral chest FINDINGS: A single portable frontal view the chest shows a left thoracostomy tube. No pneumothorax. Subcutaneou s air. Lungs are clear. No effusions. Heart is normal in size. CONCLUSION: No pneumothorax. Parmjit French Jr., MD on February 17, 2017 at 6:56 Board Certified Radiologist. This report was verified electronically.
[2017-02-17] MEDS: PANTOPRAZOLE SOD 20 MG DELAYED RELEASE TAB PO SCH (09:00)
[2017-02-17] MEDS: MORPHINE SULFATE 4 MG/ML INJ IV PUSH PRN ×3 (09:01→22:45)
--- NOTE | 2017-02-17 09:40 | HHI.PR ---
Subjective Remarks Follow-up left spontaneous tension pneumothorax. 02/10/17-patient seen and examined, denies any shortness of breath or left- sided chest pain. Patient states, he would not agree on any surgical intervention 02/11/17-patient seen and examined, although he denies shortness of breath or chest pain patient appears tired. 02/12/17-patient seen and examined, denies any chest pain or shortness of breath. Repeat chest x-ray with persistent pneumothorax 02/13/17-patient seen and examined, repeat chest x-ray today with finding of 5 mm lateral left apical pneumothorax. Denies any chest pain or shortness of breath 02/14/17-patient seen and examined, although he denies any shortness of breath however he is now agreeable to have surgery from cardiothoracic surgery 02/15/17-patient seen and examined, denies any significant shortness of breath. Reports pain control. Patient is not agreeable for surgery. 02/16/17-patient seen and examined, currently nothing by mouth and no report of SOB/Chest pain 02/17/17-patient seen and examined. Mildly tachycardic to the 100s. Sats in the low 90s on room air. Per nursing, continues to complain of chest pain s/p VATS procedure yesterday. Has nausea with norco. Pain better tolerated with IV morphine without nausea, per nursing. Appetite is good. Patient requests regular diet and states morphine has "only taken the edge off". States pain much better controlled with roxicodone 20s last admission. No other complaints. Breathing well. Objective Vitals Vital Signs Date Time Temp Pulse Resp B/P Pulse Ox O2 Delivery O2 Flow Rate FiO2 02/17/17 08:00 99.1 87 20 147/83 90 02/17/17 05:48 18 02/17/17 04:03 98.5 102 18 119/75 92 02/17/17 03:26 18 02/17/17 01:31 18 02/16/17 23:53 97.6 100 18 139/83 94 02/16/17 20:03 97.6 89 17 137/80 94 02/16/17 17:15 113 20 135/81 96 Nasal Cannula 4 02/16/17 17:00 116 22 139/83 96 Nasal Cannula 4 02/16/17 16:45 113 20 132/82 92 Nasal Cannula 4 02/16/17 16:30 114 21 139/85 92 Venturi Mask 50 02/16/17 16:30 14 02/16/17 16:30 14 02/16/17 16:15 102 17 146/78 92 Aerosol Mask 10 Non-Rebreather 02/16/17 16:00 98 14 164/105 97 Non-Rebreather 100 02/16/17 15:45 118 15 158/112 86 Simple Mask 8 02/16/17 15:39 97.8 108 15 176/89 86 Nasal Cannula 4 02/16/17 11:00 98.2 90 16 128/69 92 I/O 02/16/17 02/16/17 02/16/17 02/17/17 02/17/17 02/17/17 07:00 15:00 23:00 07:00 15:00 23:00 Intake Total 0 ml 1280 ml 380 ml Output Total 10 ml Balance 0 ml 1280 ml 370 ml Intake Oral 0 ml 280 ml 380 ml IV Total 0 ml Other 1000 ml Chest Tube Drainage Total 10 ml # Voids 2 3 1 3 # Bowel Movements 0 Result Diagram: 02/14/17 0220 Objective Remarks GENERAL: Sitting up in bed. In mild distress 2/2 pain. SKIN: Warm and dry. HEAD: Normocephalic. EYES: No scleral icterus. No injection or drainage. NECK: Supple, trachea midline. No JVD or lymphadenopathy. CARDIOVASCULAR: Regular rate and rhythm without murmurs, gallops, or rubs. RESPIRATORY: Better air movement this AM. Still with decreased breath sounds on the left. No adventitious sounds appreciated. GASTROINTESTINAL: Abdomen soft, non-tender, nondistended. +bs. MUSCULOSKELETAL: No cyanosis, or edema. Left chest tube in place with minimal serosanguineous drainage. BACK: Nontender without obvious deformity. No CVA tenderness. A/P Problem List: (1) Tension pneumothorax, spontaneous ICD Code: J93.0 Status: Acute (2) COPD with emphysema ICD Code: J43.9 Status: Acute (3) Tobacco smoke exposure ICD Code: Z77.22 Status: Acute Assessment and Plan 56-year-old man with Left Spontaneous tension pneumothorax: -Chest CT 02/09/17 finding of persistent left anterior pneumothorax. -Continue with chest tube and appreciate input from pulmonary medicine. -Cardiothoracic surgery consultation appreciated. S/p VATS surgery 02/16. CXR this AM shows no evidence of pneumothorax. -DuoNeb, Supplemental oxygen as needed -Will change pain control regimen to oxycodone 10mg for pain scale 6-8/10, 20mg for pain scale 9-10/10. Will add morphine IV for breakthrough. COPD with bullous emphysema: - Advised on tobacco cessation; continue DuoNeb when necessary Diet: changed to regular, basic. DVT PPx: Ambulatory. SCDs. Donte Yip MD R3 Feb 17, 2017 09:40
[2017-02-17] MEDS: SODIUM CHLORIDE 0.9% FLUSH 10 ML FLUSH IV FLUSH SCH ×2 (11:35→20:56)
--- NOTE | 2017-02-17 18:31 | HHI.PR ---
Subjective Remarks ALERT UP IN CHAIR CT IN PLACE NO SOB low grade fever Objective Vital Signs Date Time Temp Pulse Resp B/P Pulse Ox O2 Delivery O2 Flow Rate FiO2 02/17/17 16:00 100.2 98 20 132/111 92 02/17/17 12:33 98.2 108 20 130/87 90 02/17/17 10:39 93 Nasal Cannula 2.00 02/17/17 08:00 99.1 87 20 147/83 90 02/17/17 05:48 18 02/17/17 04:03 98.5 102 18 119/75 92 02/17/17 03:26 18 02/17/17 01:31 18 02/16/17 23:53 97.6 100 18 139/83 94 02/16/17 20:03 97.6 89 17 137/80 94 I/O 02/16/17 02/16/17 02/16/17 02/17/17 02/17/17 02/17/17 07:00 15:00 23:00 07:00 15:00 23:00 Intake Total 0 ml 1280 ml 380 ml 480 ml Output Total 10 ml Balance 0 ml 1280 ml 370 ml 480 ml Intake Oral 0 ml 280 ml 380 ml 480 ml IV Total 0 ml 0 ml Other 1000 ml Chest Tube Drainage Total 10 ml # Voids 2 3 1 3 4 # Bowel Movements 0 Result Diagram: 02/14/17 0220 Objective Remarks GENERAL: SKIN: Warm and dry. HEAD: Atraumatic. Normocephalic. EYES: Pupils equal and round. No scleral icterus. No injection or drainage. ENT: No nasal bleeding or discharge. Mucous membranes pink and moist. NECK: Trachea midline. No JVD. CARDIOVASCULAR: Regular rate and rhythm. RESPIRATORY: No accessory muscle use. Clear to auscultation. Breath sounds equal bilaterally. GASTROINTESTINAL: Abdomen soft, non-tender, nondistended. Hepatic and splenic margins not palpable. MUSCULOSKELETAL: Extremities without clubbing, cyanosis, or edema. No obvious deformities. NEUROLOGICAL: Awake and alert. No obvious cranial nerve deficits. Motor grossly within normal limits. Five out of 5 muscle strength in the arms and legs. Normal speech. PSYCHIATRIC: Appropriate mood and affect; insight and judgment normal. Assessment and Plan Assessment and Plan ASSESSMENT SPONTANEOUS PNX COPD CT LEAKing CT scan reviewed low grade fever PLAN MONITOR CT BRONCHODILATOR THERAPY patient now ready for surgery start levaquin Iqra,Iqra Wadie MD Feb 17, 2017 18:31
[2017-02-17] MEDS: LEVOFLOXACIN 750 MG/DEXTROSE 150 ML IV ONE (19:00)
[2017-02-17] MEDS: DOCUSATE CALCIUM 240 MG CAP PO SCH (20:56)
[2017-02-18] VITALS (8 sets, daily range): BP systolic 135–143; BP diastolic 67–86; PULSE 94–119; RESP 18–20; TEMP 97.2–99.4; O2SAT 90–96
--- NOTE | 2017-02-18 06:42 | RADRPT ---
EXAM DATE/TIME: 02/18/2017 05:46 [facility] COMPARISON: CHEST SINGLE AP, February 17, 2017, 5:13. INDICATIONS : Shortness of breath, possible pulmonary disease. MEDICAL HISTORY : Chronic obstructive pulmonary disease. SURGICAL HISTORY : Lobectomy. ENCOUNTER: Subsequent ACUITY: 2 weeks PAIN SCORE: Non-responsive. LOCATION: Bilateral chest FINDINGS: A single portable frontal view the chest shows a left thoracostomy tube with tip in the apex. No pneu mothorax. Subcutaneous air overlying the left chest and neck. Left lower lobe infiltrate is new. Righ t lung is clear. No effusions. Heart is normal in size. CONCLUSION: 1. No pneumothorax. 2. Developing left lower lobe infiltrate versus atelectasis. Parmjit French Jr., MD on February 18, 2017 at 6:40 Board Certified Radiologist. This report was verified electronically.
--- NOTE | 2017-02-18 07:56 | HHI.PR ---
Subjective Remarks Patient seen and examined this am. Vitals are stable with intermittent tachycardia. He is saturating at 92% on room air. He is comfortable this morning and states his pain is well controlled. He is denying any difficulty breathing and states he is using his incentive spirometer. He wants to know if his chest tube can be removed today. Objective Vital Signs Date Time Temp Pulse Resp B/P Pulse Ox O2 Delivery O2 Flow Rate FiO2 02/18/17 04:12 98.0 109 20 143/83 92 02/18/17 02:07 18 02/17/17 23:36 100.0 116 20 124/79 91 02/17/17 22:50 18 02/17/17 20:00 100.1 102 20 131/83 92 02/17/17 16:00 100.2 98 20 132/111 92 02/17/17 12:33 98.2 108 20 130/87 90 02/17/17 10:39 93 Nasal Cannula 2.00 02/17/17 08:00 99.1 87 20 147/83 90 I/O 02/17/17 02/17/17 02/17/17 02/18/17 02/18/17 02/18/17 07:00 15:00 23:00 07:00 15:00 23:00 Intake Total 380 ml 480 ml 120 ml 240 ml Output Total 10 ml 30 ml Balance 370 ml 480 ml 90 ml 240 ml Intake Oral 380 ml 480 ml 120 ml 240 ml IV Total 0 ml Chest Tube Drainage Total 10 ml 30 ml # Voids 3 4 2 3 # Bowel Movements 0 0 Result Diagram: 02/14/17 0220 Imaging Last Impressions Chest X-Ray 02/18/17 0500 Signed Impressions: Service Date/Time: Saturday, February 18, 2017 05:46 - CONCLUSION: 1. No pneumothorax. 2. Developing left lower lobe infiltrate versus atelectasis. Parmjit French Jr., MD Chest CT 02/09/17 0000 Signed Impressions: Service Date/Time: Thursday, February 09, 2017 18:44 - CONCLUSION: Small persistent anterior pneumothorax on the left. Carlos Manuel Bush MD Objective Remarks GENERAL: Sitting up in bed, comfortable and is pleasant. SKIN: Warm and dry. HEAD: Normocephalic. EYES: No scleral icterus. No injection or drainage. NECK: Supple, trachea midline. No JVD or lymphadenopathy. CARDIOVASCULAR: Regular rate and rhythm without murmurs, gallops, or rubs. RESPIRATORY: Better air movement this AM. Still with decreased breath sounds on the left. No adventitious sounds appreciated. GASTROINTESTINAL: Abdomen soft, non-tender, nondistended. +bs. MUSCULOSKELETAL: No cyanosis, or edema. Left chest tube in place with minimal serosanguineous drainage. BACK: Nontender without obvious deformity. No CVA tenderness. A/P Problem List: (1) Tension pneumothorax, spontaneous ICD Code: J93.0 (2) COPD with emphysema ICD Code: J43.9 (3) Tobacco smoke exposure ICD Code: Z77.22 Assessment and Plan 56 yo male with COPD w bullous emphysema with a hx of recurrent pneumothorax requiring chest tube was admitted for left spontaneous tension pneu s/p VATS surgery on 02/16, chest tube is still in place, pneumo has resolved. Removal of chest tube per pulmonology. 1. Left spontaneous tension pneumothorax -Chest CT 02/09/17 finding of persistent left anterior pneumothorax. -Continue with chest tube and appreciate input from pulmonary medicine: dhruv 02/18- -Cardiothoracic surgery consultation appreciated. S/p VATS surgery 02/16. CXR shows no evidence of pneumothorax, but with left lover lobe infiltrate vs. atelectasis (noted in CXR 02/16) -DuoNeb, Supplemental oxygen as needed -Pain control regimen to oxycodone 10mg for pain scale 6-8/10, 20mg for pain scale 9-10/10. IV morphine for breakthrough pain (patient has not required) COPD with bullous emphysema: - Advised on tobacco cessation; continue DuoNeb when necessary Diet: regular, basic. DVT PPx: Ambulatory. SCDs. Discharge Planning D/C pending clearance by pulm and CT surgery. He is post op day #2. Case management to assist. Cheyanne Sanders MD R3 Feb 18, 2017 07:56
[2017-02-18] MEDS: ONDANSETRON HCL 4 MG/2 ML VIAL IV PUSH PRN ×2 (09:08→20:20)
[2017-02-18] MEDS: PANTOPRAZOLE SOD 20 MG DELAYED RELEASE TAB PO SCH (09:08)
[2017-02-18] MEDS: LEVOFLOXACIN 750 MG TAB PO SCH (09:08)
[2017-02-18] MEDS: SODIUM CHLORIDE 0.9% FLUSH 10 ML FLUSH IV FLUSH SCH ×2 (09:40→20:21)
--- NOTE | 2017-02-18 12:18 | HHI.PR ---
Subjective Remarks ALERT UP IN CHAIR CT IN PLACE NO SOB low grade fever Objective Vital Signs Date Time Temp Pulse Resp B/P Pulse Ox O2 Delivery O2 Flow Rate FiO2 02/18/17 08:00 98.3 107 19 135/67 90 02/18/17 04:12 98.0 109 20 143/83 92 02/18/17 02:07 18 02/17/17 23:36 100.0 116 20 124/79 91 02/17/17 22:50 18 02/17/17 20:00 100.1 102 20 131/83 92 02/17/17 16:00 100.2 98 20 132/111 92 02/17/17 12:33 98.2 108 20 130/87 90 I/O 02/17/17 02/17/17 02/17/17 02/18/17 02/18/17 02/18/17 07:00 15:00 23:00 07:00 15:00 23:00 Intake Total 380 ml 480 ml 120 ml 240 ml Output Total 10 ml 30 ml 40 ml Balance 370 ml 480 ml 90 ml 200 ml Intake Oral 380 ml 480 ml 120 ml 240 ml IV Total 0 ml Chest Tube Drainage Total 10 ml 30 ml 40 ml # Voids 3 4 2 3 # Bowel Movements 0 0 Result Diagram: 02/14/17 0220 Objective Remarks GENERAL: SKIN: Warm and dry. HEAD: Atraumatic. Normocephalic. EYES: Pupils equal and round. No scleral icterus. No injection or drainage. ENT: No nasal bleeding or discharge. Mucous membranes pink and moist. NECK: Trachea midline. No JVD. CARDIOVASCULAR: Regular rate and rhythm. RESPIRATORY: No accessory muscle use. Clear to auscultation. Breath sounds equal bilaterally. GASTROINTESTINAL: Abdomen soft, non-tender, nondistended. Hepatic and splenic margins not palpable. MUSCULOSKELETAL: Extremities without clubbing, cyanosis, or edema. No obvious deformities. NEUROLOGICAL: Awake and alert. No obvious cranial nerve deficits. Motor grossly within normal limits. Five out of 5 muscle strength in the arms and legs. Normal speech. PSYCHIATRIC: Appropriate mood and affect; insight and judgment normal. 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
--- NOTE | 2017-02-18 13:31 | PD.CAR.PN ---
CVT Progress Note Subjective/Hospital Course: 02/12 ct chest noted bullae apex of left lung chest tube to wall suction, +2 air leak pressure dressing to chest tube site pt does not want redo surgery, he is however willing to speak with Dr Estevez in am 02/13 still has + 1 air leak small left apical ptx does not want any surgery if chest tube can be safely removed will see prn 02/15 pt still has +1-2 air leak in chest tube pt is now agreeable for surgery will schedule for surgery in am left VATS possible thoracotomy , bleb resection 02/16 SURGICAL PROCEDURE 1. Left Video-Assisted Thoracoscopic Surgery (VATS). 2. Resection of Left Upper Lobe Bullae 3. Resection of Left Lower Lobe Bulla 4. Mechanical and Talc Pleurodesis 5. Intercostal Nerve Block 02/18 Doing well No air-leak or PTX D/C CT tomorrow. Pt can be discharged home after that from my standpoint. Objective: Vital Signs Date Time Temp Pulse Resp B/P Pulse Ox O2 Delivery O2 Flow Rate FiO2 02/18/17 12:00 97.2 94 18 142/77 94 02/18/17 09:44 95 21 02/18/17 08:00 98.3 107 19 135/67 90 02/18/17 04:12 98.0 109 20 143/83 92 02/18/17 02:07 18 02/17/17 23:36 100.0 116 20 124/79 91 02/17/17 22:50 18 02/17/17 20:00 100.1 102 20 131/83 92 02/17/17 16:00 100.2 98 20 132/111 92 Result Diagram: 02/14/17 0220 (1) COPD with emphysema (2) Tension pneumothorax, spontaneous (3) Bullous emphysema with collapse Plan: keep chest tube to wall suction NPO after Midnight for surgery in am Left VATS possible thoracotomy bleb resection Maddi Estevez MD Feb 18, 2017 13:31
[2017-02-18] MEDS: MORPHINE SULFATE 4 MG/ML INJ IV PUSH PRN ×2 (14:28→20:19)
[2017-02-18] MEDS ORDERED: LEVOFLOXACIN 750 MG/DEXTROSE 150 ML IV SCH (18:00)
[2017-02-18] MEDS: DOCUSATE CALCIUM 240 MG CAP PO SCH (20:18)
[2017-02-19 03:44] VITALS: BP 127/61; PULSE 94; RESP 19; TEMP 99; O2SAT 95
[2017-02-19] MEDS: ONDANSETRON HCL 4 MG/2 ML VIAL IV PUSH PRN (04:58)
--- NOTE | 2017-02-19 06:27 | RADRPT ---
EXAM DATE/TIME: 02/19/2017 05:05 [facility] COMPARISON: CHEST SINGLE AP, February 18, 2017, 5:46. INDICATIONS : Short of breath, evaluate lungs post thoracotomy MEDICAL HISTORY : Chronic obstructive pulmonary disease. SURGICAL HISTORY : Lobectomy. chest tube ENCOUNTER: Subsequent ACUITY: 2 weeks PAIN SCORE: 2/10 LOCATION: Left chest FINDINGS: Left chest tube in place. No definite pneumothorax. There continues to be subcutaneous emphysema iqra g the left chest wall. The right lung is grossly clear. The left lung is grossly clear. No definite p leural effusions. The heart size is stable. The bony structures are stable. CONCLUSION: Left chest tube in place. No evidence of pneumothorax. Edwardo Griggs MD on February 19, 2017 at 6:24 Board Certified Radiologist. This report was verified electronically.
[2017-02-19 08:00] VITALS: BP 139/94; PULSE 105; RESP 18; TEMP 96.7; O2SAT 94
[2017-02-19] MEDS: LEVOFLOXACIN 750 MG TAB PO SCH (09:14)
[2017-02-19] MEDS: SODIUM CHLORIDE 0.9% FLUSH 10 ML FLUSH IV FLUSH SCH (09:14)
[2017-02-19] MEDS: PANTOPRAZOLE SOD 20 MG DELAYED RELEASE TAB PO SCH (09:14)
[2017-02-19] MEDS: MORPHINE SULFATE 4 MG/ML INJ IV PUSH PRN (09:15)
[2017-02-19 12:00] VITALS: BP 144/87; PULSE 99; RESP 17; TEMP 98.2; O2SAT 92
[2017-02-19] MEDS ORDERED: DOCU1CAP25 PO (15:25)
[2017-02-19] MEDS ORDERED: PERC5TAB12 PO (15:25)
[2017-02-19] MEDS ORDERED: LEVA750T PO (15:27)
--- NOTE | 2017-02-19 15:31 | HHI.DS ---
Discharge Summary Admission Date Feb 07, 2017 at 20:24 Discharge Date: Feb 19, 2017 Admitting Diagnosis spontaneous tension pneumothorax (1) Tension pneumothorax, spontaneous ICD Code: J93.0 Diagnosis: Principal (2) COPD with emphysema ICD Code: J43.9 Diagnosis: Secondary (3) Tobacco smoke exposure ICD Code: Z77.22 Diagnosis: Secondary (4) Bullous emphysema with collapse ICD Code: J43.9 Diagnosis: Secondary Procedures Left sided chest tube Brief History - From Admission 56-year-old male with a medical history significant for COPD with bullous emphysema and history of recurrent spontaneous pneumothorax presented to the emergency room with complaint of sudden onset shortness of breath. The patient reports he has been having vomiting and diarrhea for the past 3 days. He suddenly got short of breath yesterday after a vomiting episode. He presented to the emergency room and was found to have a tension pneumothorax. Of note this is a third episode of spontaneous pneumothorax for this patient. Last time was about 4 years ago on the right side at which point he underwent a right upper segmentectomy and wedge resection. He reports that he quit smoking 4 years ago. However his girlfriend continues to smoke around him. Since the chest tube has been placed, the left lung has since reexpanded. He is currently breathing comfortably on room air. He denies chest pressure. No longer having vomiting and diarrhea. Imaging Last Impressions Chest X-Ray 02/19/17 0500 Signed Impressions: Service Date/Time: Sunday, February 19, 2017 05:05 - CONCLUSION: Left chest tube in place. No evidence of pneumothorax. Edwardo Griggs MD Chest CT 02/09/17 0000 Signed Impressions: Service Date/Time: Thursday, February 09, 2017 18:44 - CONCLUSION: Small persistent anterior pneumothorax on the left. Carlos Manuel Bush MD PE at Discharge GENERAL: Sitting up in bed. In mild distress 2/2 pain. SKIN: Warm and dry. HEAD: Normocephalic. EYES: No scleral icterus. No injection or drainage. NECK: Supple, trachea midline. No JVD or lymphadenopathy. CARDIOVASCULAR: Regular rate and rhythm without murmurs, gallops, or rubs. RESPIRATORY: Better air movement this AM. Still with decreased breath sounds on the left. No adventitious sounds appreciated. GASTROINTESTINAL: Abdomen soft, non-tender, nondistended. +bs. MUSCULOSKELETAL: No cyanosis, or edema. Left chest tube in place with minimal serosanguineous drainage. BACK: Nontender without obvious deformity. No CVA tenderness. Pt update on day of discharge Chest tube removed. Cleared by surgeon for discharge today. Hospital Course Mr. Garcia is a 56 year old male. He is admitted with a tension pneumothorax at the left. He has had spontaneous pneumothoraxes twice before. A chest tube was placed and he did well and has had his chest tube removed today. Cleared for discharge by surgeon for today. A low grade fever present two days ago has started a course of levaquin for him. No new complaints today. He is feeling good after removal of the tube without SOB. Medically stable for discharge to home and outpatient follow up with surgery, pulmonology, and PCP. Pt Condition on Discharge: Stable Discharge Disposition: Discharge Home Discharge Time: <= 30 minutes Discharge Instructions DIET: Follow Instructions for: As Tolerated, No Restrictions Activities you can perform: Regular-No Restrictions Follow up Referrals: PCP Follow-up - 2 Weeks Pulmonology - 2 Weeks with Iqra Escalona MD Surgical - 1 Week New Medications: Levofloxacin (Levaquin) 750 Mg Tab 750 MG PO DAILY Infection #5 Ref 0 TAB Oxycodone-Acetaminophen (Percocet) 5-325 mg Tab 1 TAB PO Q6H PRN PAIN #60 Ref 0 TAB Docusate Calcium (Stool Softener) 240 Mg Cap 240 MG PO HS Constipation #60 CAP Continued Medications: Dicyclomine (Bentyl) 20 Mg Tab 20 MG PO TID Pain #21 TAB Pantoprazole (Protonix) 20 Mg Tab 20 MG PO DAILY Reflux #30 TAB ([Muscle Relaxer]) Unknown Dose PO Discontinued Medications: Hydrocodone-Acetaminophen (Lortab) 10-325 Mg Tab 1 TAB PO Q6H PRN PAIN Ref 0 TAB Arpan Mondragon MD Feb 19, 2017 15:31
--- NOTE | 2017-02-19 16:45 | HHI.FF ---
Face to Face Verification Diagnosis: (1) Tension pneumothorax, spontaneous (2) COPD with emphysema (3) Bullous emphysema with collapse (4) s/p VATS bleb resection left Home Health Nursing Order: Signs/symptoms of disease process Wound care and dressing changes Nursing assessment with vital signs Instructions: Incentive spirometry Q1 hr x 10, while awake, also use acapella device hourly whole awake chest wall Precautions: NO pushing or pulling, ( pt must use chest pillow to support chest with all activities and with coughing Daily incision care: ok to shower daily, ( starting on 02/21, ok for Home Health to remove packing from old chest tube site / no tub bath. Wash all incisions with liquid dial soap, clean wash cloth to each site, rinse and pat dry. Observe for any signs of infection, such as drainage which is dark yellow , reilly, green or foul smelling. Immediately report to the surgeon any drainage from the chest incision, or legs, and for any abnormal drainage from the chest tube sites. Notify surgeon if any temp >101.5 degrees F. When specialty dressing removed/ or if you do not have one, continue to shower daily as above, then rinse and pat incision dry and paint with betadine daily x 5 days. Allow steri strips to fall off if you have any. Avoid lotions, creams, salves, oils, etc. for the first month F/U appointment: as per [place] instructions: PCP in 2 weeks, CV surgeon 2 weeks, Nursery Hand 3-4 weeks For any questions regarding incisions/ dressing / meds / post op care or above Symptoms, Sunday 8am-5pm Heart & Vascular Surgery Office ( Dr. Estevez & Dr. Navarro), After Hours / Nights (5pm -8am) Weekends and Holidays Please call [facility] ([facility]) Charge Nurse I have seen patient Chavez Garcia on 02/19/17. My clinical findings support the need for the requested home health care services because: Deconditioned w/ increased weakness I certify that my clinical findings support that this patient is homebound because: Post-op weakness Deb Kamara Feb 19, 2017 16:45
--- NOTE | 2017-02-19 16:50 | PD.CAR.PN ---
CVT Progress Note Subjective/Hospital Course: 02/12 ct chest noted bullae apex of left lung chest tube to wall suction, +2 air leak pressure dressing to chest tube site pt does not want redo surgery, he is however willing to speak with Dr Estevez in am 02/13 still has + 1 air leak small left apical ptx does not want any surgery if chest tube can be safely removed will see prn 02/15 pt still has +1-2 air leak in chest tube pt is now agreeable for surgery will schedule for surgery in am left VATS possible thoracotomy , bleb resection 02/16 SURGICAL PROCEDURE 1. Left Video-Assisted Thoracoscopic Surgery (VATS). 2. Resection of Left Upper Lobe Bullae 3. Resection of Left Lower Lobe Bulla 4. Mechanical and Talc Pleurodesis 5. Intercostal Nerve Block 02/18 Doing well No air-leak or PTX D/C CT tomorrow. Pt can be discharged home after that from my standpoint. 02/19 chest tube removed without difficulty prior chest tube site packing removed and replaced vaseline gauze pressure dressing to chest site check CXR if stable , ok to dc home Objective: Vital Signs Date Time Temp Pulse Resp B/P Pulse Ox O2 Delivery O2 Flow Rate FiO2 02/19/17 12:00 98.2 99 17 144/87 92 02/19/17 08:00 96.7 105 18 139/94 94 02/19/17 03:44 99.0 94 19 127/61 95 02/18/17 23:51 98.1 101 20 139/72 93 02/18/17 23:00 114 02/18/17 20:00 99.4 116 20 136/84 96 (1) COPD with emphysema (2) Tension pneumothorax, spontaneous (3) Bullous emphysema with collapse Plan: chest tube removed without difficulty post discharge orders for HHC placed Left VATS possible thoracotomy bleb resection Deb Kamara Feb 19, 2017 16:50
[2017-02-19] MEDS ORDERED: OXYC1TAB13 PO (16:58)
--- NOTE | 2017-02-19 17:09 | RADRPT ---
EXAM DATE/TIME: 02/19/2017 16:51 [facility] COMPARISON: CHEST SINGLE AP, February 19, 2017, 5:05. INDICATIONS : Post chest tube removal MEDICAL HISTORY : Chronic obstructive pulmonary disease. spontaneous tension pneumothorax SURGICAL HISTORY : Lobectomy. ENCOUNTER: Subsequent ACUITY: 2 weeks PAIN SCORE: 2/10 LOCATION: Left chest FINDINGS: The cardiac silhouette is normal in transverse diameter. There is subcutaneous emphysema along the le ft lateral chest wall. Left chest tube has been removed. There is no evidence of pneumothorax. The l ungs are free of acute parenchymal opacity. No effusions are identified. CONCLUSION: 1. There is no evidence of pneumothorax. Chavez Espino MD on February 19, 2017 at 17:06 Board Certified Radiologist. This report was verified electronically.
--- NOTE | 2017-02-19 17:27 | HHI.PR ---
Subjective Remarks ALERT UP IN CHAIR CT removed NO SOB low grade fever Objective Vital Signs Date Time Temp Pulse Resp B/P Pulse Ox O2 Delivery O2 Flow Rate FiO2 02/19/17 12:00 98.2 99 17 144/87 92 02/19/17 08:00 96.7 105 18 139/94 94 02/19/17 03:44 99.0 94 19 127/61 95 02/18/17 23:51 98.1 101 20 139/72 93 02/18/17 23:00 114 02/18/17 20:00 99.4 116 20 136/84 96 I/O 02/18/17 02/18/17 02/18/17 02/19/17 02/19/17 02/19/17 07:00 15:00 23:00 07:00 15:00 23:00 Intake Total 240 ml 480 ml 280 ml 520 ml Output Total 40 ml Balance 200 ml 480 ml 280 ml 520 ml Intake Oral 240 ml 480 ml 280 ml 520 ml IV Total 0 ml Chest Tube Drainage Total 40 ml # Voids 3 3 2 2 # Bowel Movements 0 0 0 Objective Remarks GENERAL: SKIN: Warm and dry. HEAD: Atraumatic. Normocephalic. EYES: Pupils equal and round. No scleral icterus. No injection or drainage. ENT: No nasal bleeding or discharge. Mucous membranes pink and moist. NECK: Trachea midline. No JVD. CARDIOVASCULAR: Regular rate and rhythm. RESPIRATORY: No accessory muscle use. Clear to auscultation. Breath sounds equal bilaterally. GASTROINTESTINAL: Abdomen soft, non-tender, nondistended. Hepatic and splenic margins not palpable. MUSCULOSKELETAL: Extremities without clubbing, cyanosis, or edema. No obvious deformities. NEUROLOGICAL: Awake and alert. No obvious cranial nerve deficits. Motor grossly within normal limits. Five out of 5 muscle strength in the arms and legs. Normal speech. PSYCHIATRIC: Appropriate mood and affect; insight and judgment normal. Assessment and Plan Assessment and Plan ASSESSMENT SPONTANEOUS PNX ct removed doing well PLAN home today office 1 week Iqra Escalona MD Feb 19, 2017 17:26
== END 2017-02-19 17:47 | disposition home or self-care (01) | DRG 164 ==
LOC: NEPC 17:55 → NEDA 20:24 → N07A 22:20
PROVIDERS: ADMIT Hospitalist; ATTEND Hospitalist
PROC: 0W9B30Z Drainage of Left Pleural Cavity with Drainage Device, Percutaneous Approach (ICD-10-PCS; 2017-02-07)
PROC: 0BBG4ZZ Excision of Left Upper Lung Lobe, Percutaneous Endoscopic Approach (ICD-10-PCS; 2017-02-16)
PROC: 3E0L3GC Introduction of Other Therapeutic Substance into Pleural Cavity, Percutaneous Approach (ICD-10-PCS; 2017-02-16)
PROC: 3E0T3CZ (ICD-10-PCS; 2017-02-16)
PROC: 0BBJ4ZZ Excision of Left Lower Lung Lobe, Percutaneous Endoscopic Approach (ICD-10-PCS; principal; 2017-02-16 13:10)
DX: J86.0 Pyothorax with fistula (principal); T85.638A Leakage of other specified internal prosthetic devices, implants and grafts, initial encounter; J43.0 Unilateral pulmonary emphysema [MacLeod's syndrome]; J45.909 Unspecified asthma, uncomplicated; R00.0 Tachycardia, unspecified; R19.7 Diarrhea, unspecified; R11.2 Nausea with vomiting, unspecified; Z77.22 Contact with and (suspected) exposure to environmental tobacco smoke (acute) (chronic); Z87.891 Personal history of nicotine dependence
CPT/HCPCS: 32551; 71010; 71020; 71250; 76937; 80048; 80053; 81001; 82550; 82552; 83690; 83735; 84484; 85025; 85027; 85610; 85730; 86850; 86900; 86901; 87804; 88305; 88307; 93005; 94150; 94664; 96361; 96374; 96375; 96376; C9290; J0131; J0690; J1100; J1885; J1956; J2250; J2270; J2370; J2405; J2710; J3010; J7030; J7040; J7613

== ENCOUNTER 2017-02-28 13:24 | Emergency (ER) | payer MEDICAID ==
[~2017-02-28] VITALS: Ht 188 cm; Wt 85.0 kg
[~2017-02-28 13:24] MED LIST changes: +DOCU1CAP25 PO; -HYDR-3535 PO; +LEVA750T PO; +OXYC1TAB13 PO
[2017-02-28 13:28] VITALS: BP 147/98; PULSE 109; RESP 18; TEMP 98.2; O2SAT 98
--- NOTE | 2017-02-28 13:31 | PD ---
Physical Exam Time Seen by Provider: 13:29 Narrative 56 y/o male presents for evaluation of wound check. Recently admitted for tension pneumothorax, underwent resection of left upper/lower lobe bulla. He reports the incision site is leaking and he is having persistent pain unrelieved with the medication that he was prescribed. Vital signs reviewed. Seen at triage desk. Awaiting bed placement. Data Data Last Documented VS Vital Signs Date Time Temp Pulse Resp B/P Pulse Ox O2 Delivery O2 Flow Rate FiO2 02/28/17 13:28 98.2 109 18 147/98 98 MDM Medical Record Reviewed: Yes Supervised Visit with BETZAIDA: No Giancarlo Sarabia February 28, 2017 13:31
--- NOTE | 2017-02-28 16:21 | PD ---
HPI Chief Complaint: Wound/Suture/Staple Re-Check Time Seen by Provider: 16:21 Travel History International Travel<30 days: No Contact w/Intl Traveler<30days: No Traveled to known affect area: No History of Present Illness HPI 56-year-old male came to the emergency room with history of pleural decortication surgery done for recurrent tension pneumothorax 2 weeks ago. Patient has been discharged home for past 10 days almost. Came here today because to get the wound checked. He was also requesting to get a new primary care physician for himself since he doesn't like his current primary care physician. Vital signs are stable. Patient does not appear to be in any distress. He said he did a course of antibiotic after he left which she has finished. No history of fever chills. PFSH Past Medical History Narrative Medical List of his past medical, surgical, social and family history was reviewed from the nursing note. Asthma: Yes Cancer: No Cardiovascular Problems: No COPD: Yes Cerebrovascular Accident: No Diabetes: No Diminished Hearing: No Endocrine: No Genitourinary: No Immune Disorder: No Musculoskeletal: Yes Neurologic: Yes Psychiatric: No Reproductive: No Respiratory: Yes Migraines: Yes Seizures: No Sleep Apnea: No Past Surgical History Abdominal Surgery: No AICD: No Arteriovenous Shunt: No Cardiac Surgery: No Ear Surgery: No Endocrine Surgery: No Eye Surgery: No Genitourinary Surgery: No Gynecologic Surgery: No Insulin Pump: No Joint Replacement: No Oral Surgery: No Pacemaker: No Thoracic Surgery: Yes (THOROCOTOMY 2004; COLLAPSE LUNG--CHEST TUBE 01/2017) Other Surgery: Yes Social History Alcohol Use: Yes Tobacco Use: No Substance Use: No Allergies-Medications (Allergen,Severity, Reaction): Coded Allergies: *MDRO Multi-Drug Resistant Organism (Verified Allergy, Unknown, 02/28/17) MRSA Comments List of his allergies reviewed from the nursing note. Reported Meds & Prescriptions Reported Meds & Active Scripts Active Roxicodone (Oxycodone HCl) 5 Mg Tab 5 Mg PO Q6H PRN Levaquin (Levofloxacin) 750 Mg Tab 750 Mg PO DAILY Stool Softener (Docusate Calcium) 240 Mg Cap 240 Mg PO HS Bentyl (Dicyclomine HCl) 20 Mg Tab 20 Mg PO TID Protonix (Pantoprazole Sodium) 20 Mg Tab 20 Mg PO DAILY Reported [Muscle Relaxer] Unknown Dose PO Narrative Medication List of his home medications reviewed from the nursing note. Review of Systems Except as stated in HPI: all other systems reviewed are Neg Physical Exam Narrative GENERAL: Awake, alert, anxious, no obvious distress SKIN: Focused skin assessment warm/dry. 2 open wounds that are postsurgical on his left inferior axillary area where the chest tubes were inserted. The wound is not draining and looks like it's healing currently by secondary intention. HEAD: Atraumatic. Normocephalic. EYES: Pupils equal and round. No scleral icterus. No injection or drainage. ENT: No nasal bleeding or discharge. Mucous membranes pink and moist. NECK: Trachea midline. No JVD. CARDIOVASCULAR: Regular rate and rhythm. No murmur appreciated. RESPIRATORY: No accessory muscle use. Clear to auscultation. Breath sounds equal bilaterally. GASTROINTESTINAL: Abdomen soft, non-tender, nondistended. Hepatic and splenic margins not palpable. MUSCULOSKELETAL: No obvious deformities. No clubbing. No cyanosis. No edema. NEUROLOGICAL: Awake and alert. No obvious cranial nerve deficits. Motor grossly within normal limits. Normal speech. PSYCHIATRIC: Appropriate mood and affect; insight and judgment normal. Data Data Last Documented VS Vital Signs Date Time Temp Pulse Resp B/P Pulse Ox O2 Delivery O2 Flow Rate FiO2 02/28/17 13:28 98.2 109 18 147/98 98 MDM Medical Decision Making Medical Screen Exam Complete: Yes Emergency Medical Condition: Yes Medical Record Reviewed: Yes Differential Diagnosis Postop wound check Narrative Course 4:25 PM patient was given reassurance after I let him know that the wound looks healthy. I gave him a pamphlet for [facility] since they're accepting new patients. I will discharge him. He was happy with that. Procedures EKG Prior to Arrival: No Diagnosis Primary Impression: Encounter for postoperative wound check Referrals: Primary Care Physician Additional Instructions: Please return to the ER if the condition worsens or any other new concerns. Dressings every day on the wound until it heals completely. Follow-up with your primary care. Med/Other Pt SpecificInfo: No Change to Meds Disposition: 01 DISCHARGE HOME Condition: Stable Hira Bansal MD February 28, 2017 16:21
== END 2017-02-28 17:16 | disposition home or self-care (01) ==
LOC: NEPD 13:24
DX: Z48.813 Encounter for surgical aftercare following surgery on the respiratory system (principal); Z87.09 Personal history of other diseases of the respiratory system; Z87.39 Personal history of other diseases of the musculoskeletal system and connective tissue; Z86.69 Personal history of other diseases of the nervous system and sense organs
CPT/HCPCS: 99281

== ENCOUNTER 2017-05-07 03:00 | Emergency (ER) | payer MEDICAID ==
[~2017-05-07] VITALS: Ht 188 cm; Wt 85.0 kg
[2017-05-07 03:02] VITALS: BP 144/65; PULSE 83; RESP 16; TEMP 98.6; O2SAT 96
--- NOTE | 2017-05-07 04:34 | PD ---
HPI Chief Complaint: Headache Time Seen by Provider: 03:39 Travel History International Travel<30 days: No Contact w/Intl Traveler<30days: No Traveled to known affect area: No History of Present Illness HPI The patient is a 56 year old male who presents to the [facility] emergency department with a history of a headache that began 4 days. It involves his entire head. It is constant. It is a throbbing sensation. He reports that he has had headaches like this in the past, however this is more persistent than usual. He reports that it gradually began until it peaked. He reports that it does improve although does not go away with taking Naprosyn. He denies having any recent imaging of his head done. He denies having any photophobia, phonophobia, nausea, vomiting, or diarrhea. He reports that he has had some body aches. He reports that he has been recently exposed to a viral intestinal infection from his grandchild. The patient denies any recent fevers, cough, congestion, neck pain, chest pain, shortness of breath, abdominal pain, vomiting , diarrhea, urinary symptoms, one-sided weakness, slurred speech, dizziness, facial droop, difficulty with word finding ability, or vision changes. [facility] Past Medical History Narrative Medical The patient's past medical history is significant for chest pain after chest tube recently - last Tramadol 3 days ago, COPd, Asthma, Migraines, chronic back pain, neuropathy. PCP: Tracey bhakta. Asthma: Yes Cancer: No Cardiovascular Problems: No COPD: Yes Cerebrovascular Accident: No Diabetes: No Diminished Hearing: No Endocrine: No Gastrointestinal Disorders: No Genitourinary: No Headaches: No Immune Disorder: No Implanted Vascular Access Dvce: No Musculoskeletal: Yes Neurologic: Yes Psychiatric: No Reproductive: No Respiratory: Yes Immunizations Current: Yes Migraines: Yes Seizures: No Sleep Apnea: No Tetanus Vaccination: > 5 Years Influenza Vaccination: No Past Surgical History Narrative Surgical The patient's past surgical history is significant for chest tube placement x3. Abdominal Surgery: No AICD: No Arteriovenous Shunt: No Cardiac Surgery: No Ear Surgery: No Endocrine Surgery: No Eye Surgery: No Genitourinary Surgery: No Gynecologic Surgery: No Insulin Pump: No Joint Replacement: No Neurologic Surgery: No Oral Surgery: No Pacemaker: No Thoracic Surgery: Yes (THOROCOTOMY 2004; COLLAPSE LUNG--CHEST TUBE 01/2017) Other Surgery: Yes Social History Alcohol Use: No Tobacco Use: No Substance Use: No Allergies-Medications (Allergen,Severity, Reaction): Coded Allergies: *MDRO Multi-Drug Resistant Organism (Verified Allergy, Unknown, 05/07/17) MRSA Reported Meds & Prescriptions Reported Meds & Active Scripts Active Review of Systems Except as stated in HPI: all other systems reviewed are Neg General / Constitutional: No: Fever Eyes: No: Visual changes HENT: Positive: Headaches, No: Neck Stiffness, Neck Pain Cardiovascular: No: Chest Pain or Discomfort Respiratory: No: Shortness of Breath Gastrointestinal: No: Nausea, Vomiting, Diarrhea, Abdominal Pain Genitourinary: No: Dysuria Musculoskeletal: No: Pain Skin: No Rash Neurologic: Positive: Headache, No: Weakness, Focal Abnormalities, Coordination Problem, Change in Mentation, Sensory Disturbance Psychiatric: No: Depression Endocrine: No: Polydipsia Hematologic/Lymphatic: No: Easy Bruising Physical Exam Narrative General: The patient is a well-developed well-nourished male in no acute distress. Head and Neck exam: Head is normocephalic atraumatic. Eyes: EOMI, pupils are equal round and reactive to light. Nose: Midline septum with pink mucous membranes Mouth: Dentition unremarkable. Moist mucus membranes. Posterior oropharynx is not erythematous. No tonsillar hypertrophy. Uvula midline. Airway patent. Neck: No palpable lymphadenopathy. No nuchal rigidity. No thyromegaly. Cardiovascular: Regular rate and rhythm without murmurs, gallops, or rubs. Lungs: Clear to auscultation bilaterally. No wheezes, rhonchi, or rales. Abdomen: Soft, without tenderness to palpation in all 4 quadrants of the abdomen. No guarding, rebound, or rigidity. Normal bowel sounds are audible. No tenderness on palpation of McBurney's point. Negative [place] sign. Extremities: No clubbing, cyanosis, or edema. 2+ pulses in all 4 extremities. No calf tenderness on palpation. Back: No spinous process tenderness to palpation. No costovertebral angle tenderness to palpation. Neurologic Exam: Cranial nerves 2-12 were intact on exam. Strength is 5/5 in all 4 extremities. No sensory deficits noted. Skin Exam: No rash noted. Intact skin that is warm and dry. Data Data Last Documented VS Vital Signs Date Time Temp Pulse Resp B/P Pulse Ox O2 Delivery O2 Flow Rate FiO2 05/07/17 04:43 18 05/07/17 03:02 98.6 83 144/65 96 Room Air Orders Ketorolac Inj (Toradol Inj) (05/07/17 04:45) Prochlorperazine Inj (Compazine Inj) (05/07/17 04:45) Diphenhydramine Inj (Benadryl Inj) (05/07/17 04:45) Complete Blood Count With Diff (05/07/17 04:37) Basic Metabolic Panel (Bmp) (05/07/17 04:37) Iv Access Insert/Monitor (05/07/17 04:37) Ecg Monitoring (05/07/17 04:37) Oximetry (05/07/17 04:37) Sodium Chlor 0.9% 1000 Ml Inj (Ns 1000 M (05/07/17 04:45) Ct Brain W/O Iv Contrast(Rout) (05/07/17 04:38) Labs Laboratory Tests Test 05/07/17 04:40 White Blood Count 4.3 TH/MM3 Red Blood Count 4.21 MIL/MM3 Hemoglobin 12.8 GM/DL Hematocrit 38.9 % Mean Corpuscular Volume 92.4 FL Mean Corpuscular Hemoglobin 30.3 PG Mean Corpuscular Hemoglobin 32.8 % Concent Red Cell Distribution Width 12.6 % Platelet Count 240 TH/MM3 Mean Platelet Volume 8.7 FL Neutrophils (%) (Auto) 50.7 % Lymphocytes (%) (Auto) 33.6 % Monocytes (%) (Auto) 9.2 % Eosinophils (%) (Auto) 6.0 % Basophils (%) (Auto) 0.5 % Neutrophils # (Auto) 2.2 TH/MM3 Lymphocytes # (Auto) 1.4 TH/MM3 Monocytes # (Auto) 0.4 TH/MM3 Eosinophils # (Auto) 0.3 TH/MM3 Basophils # (Auto) 0.0 TH/MM3 CBC Comment DIFF FINAL Differential Comment Sodium Level 139 MEQ/L Potassium Level 4.6 MEQ/L Chloride Level 105 MEQ/L Carbon Dioxide Level 28.1 MEQ/L Anion Gap 6 MEQ/L Blood Urea Nitrogen 12 MG/DL Creatinine 0.94 MG/DL Estimat Glomerular Filtration 101 ML/MIN Rate Random Glucose 93 MG/DL Calcium Level 8.6 MG/DL MDM Medical Decision Making Medical Screen Exam Complete: Yes Emergency Medical Condition: Yes Medical Record Reviewed: Yes Interpretation(s) Last Impressions Head CT 05/07/17 0438 Signed Impressions: Service Date/Time: Sunday, May 07, 2017 05:03 - CONCLUSION: Normal examination. Cam Bowen MD Differential Diagnosis Migraine headache, versus tension headache, versus intracranial mass, versus cluster headache, versus viral syndrome, versus intracranial hemorrhage Narrative Course During the course of the patients emergency department visit, the patients history, examination, and differential diagnosis were reviewed with the patient. The patient had IV access obtained and blood work sent for analysis. The patient's was on a cardiac monitor technician with oximetry and blood pressure monitoring. The patient was initially provided normal saline 1 L IV fluid bolus, Toradol 15 mg IV, Benadryl 25 mg IV, Compazine 5 mg IV. The patients laboratory studies were reviewed and remarkable for a white count of 4.3, hemoglobin 12.8, platelets 240 with 9.2 monocytes suggestive of a viral process. Basic metabolic profile is within normal limits. Radiology studies were reviewed and remarkable for a CT scan of the brain shows no acute abnormality. The patient will be discharged home with a prescription for Fioricet. The patient is resting comfortably and feels better, is alert and in no distress. The patients results and examination findings were discussed with the patient. The repeat examination is unremarkable and benign. The history, exam, diagnostic testing, and current condition do not suggest any significant pathology to warrant further testing, continued ED treatment, admission, or surgical evaluation at this point. The vital signs have been stable. The patient does not have uncontrollable pain, intractable vomiting, or other significant symptoms. The patient's condition is stable and appropriate for discharge. The patient will pursue further outpatient evaluation with a primary care physician or other designated or consulting physician as indicated in the discharge instructions. The patient expressed understanding and was agreeable with this plan. Diagnosis Primary Impression: Headache Qualified Code: R51 - Acute nonintractable headache, unspecified headache type Referrals: Primary Care Physician 3 days Patient Instructions: Acute Headache (ED), General Instructions Med/Other Pt SpecificInfo: Prescription(s) given Scripts Glkpyvfvnx-Kytwzytxuigwf-Yfiiuuki (Fioricet)50-300-40 Mg Cap1 Cap PO Q4H PRN ( HEADACHE) #6 CAP Ref 0 Prov:Irene Juárez MD 05/07/17 Disposition: 01 DISCHARGE HOME Condition: Stable Irene Juárez MD May 07, 2017 04:34
[2017-05-07 04:43] VITALS: RESP 18
[2017-05-07] MEDS ORDERED: SODIUM CHLOR 0.9% 1000 ML INJ 1,000 ML IV ONE (04:45)
[2017-05-07] MEDS ORDERED: KETOROLAC TROMETHAMINE 30 MG/ML (IVP) VIAL IV PUSH ONE (04:45)
[2017-05-07] MEDS ORDERED: PROCHLORPERAZINE INJ 10 MG/2 ML VIAL IV PUSH ONE (04:45)
[2017-05-07] MEDS ORDERED: diphenhydrAMINE HCL 50 MG/ML VIAL IV PUSH ONE (04:45)
[2017-05-07 04:58] LABS: AUTOMATED NEUTROPHIL # 2.2 TH/MM3 (1.8-7.7); BASOPHIL % 0.5 % (0.0-2.0); EOSINOPHIL # 0.3 TH/MM3 (0-0.4); HEMATOCRIT 38.9 % (39.0-51.0); HEMO FLAGS DIFF FINAL; LYMPH % 33.6 % (9.0-44.0); LYMPHOCYTE # 1.4 TH/MM3 (1.0-4.8); MEAN CELL VOLUME 92.4 FL (80.0-100.0); MEAN CORPUSCULAR HEMOGLOBIN 30.3 PG (27.0-34.0); MEAN CORPUSCULAR HGB CONC 32.8 % (32.0-36.0); MONO % 9.2 % (0.0-8.0); NEUT % 50.7 % (16.0-70.0); PLATELET COUNT 240 TH/MM3 (150-450); RED BLOOD COUNT 4.21 MIL/MM3 (4.50-5.90); RED CELL DISTRIBUTION WIDTH 12.6 % (11.6-17.2); WHITE BLOOD COUNT 4.3 TH/MM3 (4.0-11.0)
[2017-05-07 05:13] LABS: BICARBONATE 28.1 MEQ/L (21.0-32.0); POTASSIUM 4.6 MEQ/L (3.5-5.1)
--- NOTE | 2017-05-07 05:14 | RADRPT ---
EXAM DATE/TIME: 05/07/2017 05:03 [facility] COMPARISON: No previous studies available for comparison. INDICATIONS : Cephalgia. RADIATION DOSE: 36.26 CTDIvol (mGy) MEDICAL HISTORY : Chronic obstructive pulmonary disease. SURGICAL HISTORY : None. ENCOUNTER: Initial ACUITY: 1 day PAIN SCALE: 8/10 LOCATION: cranial TECHNIQUE: Multiple contiguous axial images were obtained of the head. Using automated exposure control and adj ustment of the mA and/or kV according to patient size, radiation dose was kept as low as reasonably a chievable to obtain optimal diagnostic quality images. DICOM format image data is available electro nically for review and comparison. FINDINGS: CEREBRUM: The ventricles are normal for age. No evidence of midline shift, mass lesion, hemorrhage or acute in farction. No extra-axial fluid collections are seen. POSTERIOR FOSSA: The cerebellum and brainstem are intact. The 4th ventricle is midline. The cerebellopontine angle i s unremarkable. EXTRACRANIAL: The visualized portion of the orbits is intact. SKULL: The calvaria is intact. No evidence of skull fracture. CONCLUSION: Normal examination. Cam Bowen MD on May 07, 2017 at 5:12 Board Certified Radiologist. This report was verified electronically.
[2017-05-07 05:49] VITALS: RESP 16
[2017-05-07] MEDS ORDERED: BUTA1CAP PO (05:49)
== END 2017-05-07 06:41 | disposition home or self-care (01) ==
LOC: NEPE 03:00
DX: R51 Headache (principal); J44.9 Chronic obstructive pulmonary disease, unspecified; J45.909 Unspecified asthma, uncomplicated
CPT/HCPCS: 70450; 80048; 85025; 96361; 96374; 96375; 99285; J0780; J1200; J1885; J7030